=== PATIENT | female | born 1940 | race Caucasian/White ===

== ENCOUNTER 2018-06-15 14:49 | Inpatient (IN) | payer OTHER ==
--- NOTE | 2018-06-15 15:03 | EDPHY ---
H & P Time Seen by Provider: 06/15/18 15:02 HPI/ROS: Chief complaint. Abdominal pain, back pain, fever HPI. Patient is a 78-year-old female visiting from [place]. 9 days ago while in [place] she awoke with pain across her back. She went to the emergency department and had chest x-ray EKG nitroglycerin and then a muscle relaxer which seemed to relieve the pain. She had been previously the night before sitting awkwardly in a chair at a performance. She did stay overnight in the hospital and was seen by Cardiology. She was cleared from cardiac standpoint and has been using the muscle relaxers intermittently since. She was fine for the next 7 days. Yesterday she woke to come on the plane flight to [place]. She developed the on the way to the airport some abdominal pain and chills. She continued to have abdominal pain on the airplane. She was seen yesterday at urgent care and workup included a lipase which was normal. However today she has fever. She has pain in the mid abdomen going through to her back. She has no nausea vomiting or diarrhea. She notes dark urine today. She has had decreased oral intake. No upper respiratory symptoms or cough or chest pain or shortness of breath. No treatment for fever today. She has been using Tums. ROS 10 systems were reviewed and negative with the exception of the elements mentioned in the history of present illness Past Medical/Surgical History: Open cholecystectomy 8-10 years ago without subsequent problems. Hypertension, hypothyroid Social History: , nonsmoker, no alcohol Smoking Status: Never smoked Physical Exam: General Appearance: Alert well-developed female moderate distress vital signs significant for temperature 38.9 degrees. Blood pressure 183/56. Heart rate 99 Eyes: Pupils equal and round no pallor or injection. Scleral icterus ENT, pharynx without injection. Mucous membranes are dry Respiratory: There are no retractions, lungs are clear to auscultation. Cardiovascular: Regular rate and rhythm. Gastrointestinal: Abdomen is soft with tenderness in the periumbilical area as well as right lower quadrant. No masses. Normal bowel sounds Neurological: Awake and alert, sensory and motor exams grossly normal. Skin: Warm and dry, no rashes. Musculoskeletal: Neck is supple nontender. Extremities symmetrical, full range of motion. Psychiatric: Patient is oriented X 3, there is no agitation. Constitutional: Initial Vital Signs Temperature (C) 38.9 C H 06/15/18 14:58 Heart Rate 99 06/15/18 14:58 Respiratory Rate 18 06/15/18 14:58 Blood Pressure 183/56 H 06/15/18 14:58 O2 Sat (%) 95 06/15/18 14:58 O2 Delivery Mode Room Air Allergies/Adverse Reactions: No Known Allergies Allergy (Verified 06/15/18 19:14) Home Medications: Medication Instructions Recorded Alendronate Sodium [Fosamax 35 MG] 35 mg PO FR@0800 06/15/18 Calcium Carb W/Vit D [Calcium Carb 500 mg PO BID 06/15/18 W/Vit D 500/200 (*)] Cyclobenzaprine [Flexeril 10 MG 5 mg PO TID PRN 06/15/18 (*)] Herbals/Supplements -Info Only 1 ea PO DAILY 06/15/18 Levothyroxine [Synthroid 137 mcg 137 mcg PO DAILY 06/15/18 (*)] Lisinopril [Zestril 10 mg (*)] 10 mg PO DAILY 06/15/18 [place]-3 Fatty Acids [Fish Oil 1000 1,000 mg PO DAILY 06/15/18 mg (*)] Medical Decision Making - Diagnostics Imaging Results: Imaging Impressions Chest X-Ray 06/15/18 15:32 Impression: Diffuse interstitial prominence with apical pleural thickening, which could be related to emphysema or interstitial lung disease, among other etiologies, with no acute findings. Abdomen CT 06/15/18 17:17 Impression: 1. Marked dilatation of the intrahepatic and extrahepatic biliary ductal system to the level of the ampulla postcholecystectomy. The degree of biliary dilatation is greater than typically present postcholecystectomy and suggests the possibility of a mass at the ampulla, which is not directly visualized on this study. 2. Marked constipation. Results called to Dr. Joel Banks at 5:40 p.m. Chest x-ray interpreted by me as nonacute CT abdomen and pelvis with IV contrast reviewed by me and discussed with Dr. Wright shows intra and extrahepatic duct dilatation. No evidence for diverticulitis, ascites, pancreatitis. Appendix is not seen but no secondary findings. CT consistent with cholangitis Procedures: IV normal saline with initial target of 1 L. Tylenol for fever Sepsis workup IV Levaquin ED Course/Re-evaluation: Serial evaluations and patient is stable. Patient and I discussed laboratory and imaging evaluation. We discussed treatment plan including recommendation for admission. I consulted discussed case with Dr. Blair for Gastroenterology who will see the patient I consulted and discused the case with , hospitalist, who agrees to the admission Differential Diagnosis: This appears to be cholangitis. She has triad of fever, increased bilirubin, and abdominal pain. Intra and extrahepatic duct dilatation and abnormal LFTs. No obvious tumor as a cause. - Data Points Laboratory Results: Laboratory Results 06/15/18 15:05 06/15/18 15:05 06/15/18 06/15/18 06/15/18 16:10 15:30 15:05 WBC RBC Hgb Hct MCV MCH MCHC RDW Plt Count MPV Neut % (Auto) Lymph % (Auto) [place] % (Auto) Eos % (Auto) Baso % (Auto) Nucleat RBC Rel Count Absolute Neuts (auto) Absolute Lymphs (auto) Absolute Monos (auto) Absolute Eos (auto) Absolute Basos (auto) Absolute Nucleated RBC Immature Gran % Seg Neutrophils % Band Neutrophils % Lymphocytes % Monocytes % Eosinophils % Basophils % Metamyelocytes % Myelocytes % Promyelocytes % Blast Cells % Immature Gran # Absolute Seg Neuts Absolute Band Neuts Absolute Lymphocytes Absolute Monocytes Absolute Eosinophils Absolute Basophils Absolute Metamyelocyte Absolute Myelocytes Absolute Promyelocytes Absolute Plasma Cells Nucleated RBCs Absolute Blast Cells Plasma Cells % Platelet Estimate Oval Macrocytes PT 16.4 SEC H SEC (12.0-15.0) INR 1.30 H (0.83-1.16) APTT 27.2 SEC SEC (23.0-38.0) VBG Lactic Acid Sodium Potassium Chloride Carbon Dioxide Anion Gap BUN Creatinine Estimated GFR Glucose Calcium Total Bilirubin 8.8 mg/dL H mg/dL (0.1-1.4) Conjugated Bilirubin 5.9 mg/dL H mg/dL (0.0-0.5) Unconjugated Bilirubin 2.9 mg/dL H mg/dL (0.0-1.1) AST 401 IU/L H IU/L (14-46) ALT 462 IU/L H IU/L (9-52) Alkaline Phosphatase 258 IU/L H IU/L (38-126) Total Protein 7.1 g/dL g/dL (6.3-8.2) Albumin 4.3 g/dL g/dL (3.5-5.0) Lipase 69 IU/L IU/L (23-300) Urine Color BREEZY Urine Appearance CLEAR Urine pH 5.0 (5.0-7.5) Ur Specific [place] 1.013 (1.002-1.030) Urine Protein NEGATIVE (NEGATIVE) Urine Ketones TRACE H (NEGATIVE) Urine Blood 1+ H (NEGATIVE) Urine Nitrate NEGATIVE (NEGATIVE) Urine Bilirubin POSITIVE H (NEGATIVE) Urine Urobilinogen 4.0 EU H EU (0.2-1.0) Ur Leukocyte Esterase NEGATIVE (NEGATIVE) Urine RBC 5-10 /hpf H /hpf (0-3) Urine WBC 1-3 /hpf /hpf (0-3) Ur Epithelial Cells NONE SEEN /lpf /lpf (NONE-1+) Urine Mucus TRACE /lpf /lpf (NONE-1+) Urine Glucose NEGATIVE (NEGATIVE) 06/15/18 06/15/18 06/15/18 15:05 15:05 15:05 WBC 13.03 10^3/uL H 10^3/uL (3.80-9.50) RBC 3.74 10^6/uL L 10^6/uL (4.18-5.33) Hgb 12.4 g/dL L g/dL (12.6-16.3) Hct 35.4 % L % (38.0-47.0) MCV 94.7 fL fL (81.5-99.8) MCH 33.2 pg pg (27.9-34.1) MCHC 35.0 g/dL g/dL (32.4-36.7) RDW 13.5 % % (11.5-15.2) Plt Count 236 10^3/uL 10^3/uL (150-400) MPV 10.0 fL fL (8.7-11.7) Neut % (Auto) Not Reported Lymph % (Auto) Not Reported [place] % (Auto) Not Reported Eos % (Auto) Not Reported Baso % (Auto) Not Reported Nucleat RBC Rel Count Not Reported Absolute Neuts (auto) Not Reported Absolute Lymphs (auto) Not Reported Absolute Monos (auto) Not Reported Absolute Eos (auto) Not Reported Absolute Basos (auto) Not Reported Absolute Nucleated RBC Not Reported Immature Gran % Not Reported Seg Neutrophils % 90.0 % % Band Neutrophils % 0.0 % % Lymphocytes % 7.0 % % Monocytes % 3.0 % % Eosinophils % 0.0 % % Basophils % 0.0 % % Metamyelocytes % 0.0 % % Myelocytes % 0.0 % % Promyelocytes % 0.0 % % Blast Cells % 0.0 % % Immature Gran # Not Reported Absolute Seg Neuts 11.73 10^3/uL H 10^3/uL (1.70-6.50) Absolute Band Neuts 0.00 10^3/uL 10^3/uL (0.00-0.70) Absolute Lymphocytes 0.91 10^3/uL L 10^3/uL (1.00-3.00) Absolute Monocytes 0.39 10^3/uL 10^3/uL (0.30-0.80) Absolute Eosinophils 0.00 10^3/uL L 10^3/uL (0.03-0.40) Absolute Basophils 0.00 10^3/uL L 10^3/uL (0.02-0.10) Absolute Metamyelocyte 0.00 10^3/mL 10^3/mL (0.00-0.00) Absolute Myelocytes 0.00 10^3/mL 10^3/mL (0.00-0.00) Absolute Promyelocytes 0.00 10^3/uL 10^3/uL (0.00-0.00) Absolute Plasma Cells 0.00 10^3/uL 10^3/uL (0.00-0.00) Nucleated RBCs 0 /100 WBC /100 WBC (0-0) Absolute Blast Cells 0.00 10^3/uL 10^3/uL (0.00-0.00) Plasma Cells % 0.0 % % Platelet Estimate ADEQUATE (ADEQ) Oval Macrocytes 1+ H PT REJ INR REJ APTT REJ VBG Lactic Acid 1.3 mmol/L mmol/L (0.7-2.1) Sodium Potassium Chloride Carbon Dioxide Anion Gap BUN Creatinine Estimated GFR Glucose Calcium Total Bilirubin Conjugated Bilirubin Unconjugated Bilirubin AST ALT Alkaline Phosphatase Total Protein Albumin Lipase Urine Color Urine Appearance Urine pH Ur Specific [place] Urine Protein Urine Ketones Urine Blood Urine Nitrate Urine Bilirubin Urine Urobilinogen Ur Leukocyte Esterase Urine RBC Urine WBC Ur Epithelial Cells Urine Mucus Urine Glucose 06/15/18 15:05 WBC RBC Hgb Hct MCV MCH MCHC RDW Plt Count MPV Neut % (Auto) Lymph % (Auto) [place] % (Auto) Eos % (Auto) Baso % (Auto) Nucleat RBC Rel Count Absolute Neuts (auto) Absolute Lymphs (auto) Absolute Monos (auto) Absolute Eos (auto) Absolute Basos (auto) Absolute Nucleated RBC Immature Gran % Seg Neutrophils % Band Neutrophils % Lymphocytes % Monocytes % Eosinophils % Basophils % Metamyelocytes % Myelocytes % Promyelocytes % Blast Cells % Immature Gran # Absolute Seg Neuts Absolute Band Neuts Absolute Lymphocytes Absolute Monocytes Absolute Eosinophils Absolute Basophils Absolute Metamyelocyte Absolute Myelocytes Absolute Promyelocytes Absolute Plasma Cells Nucleated RBCs Absolute Blast Cells Plasma Cells % Platelet Estimate Oval Macrocytes PT INR APTT VBG Lactic Acid Sodium 135 mEq/L mEq/L (135-145) Potassium 4.0 mEq/L mEq/L (3.3-5.0) Chloride 101 mEq/L mEq/L (97-110) Carbon Dioxide 20 mEq/l L mEq/l (22-31) Anion Gap 14 mEq/L mEq/L (6-14) BUN 19 mg/dL mg/dL (7-23) Creatinine 0.8 mg/dL mg/dL (0.6-1.0) Estimated GFR > 60 Glucose 116 mg/dL H mg/dL (70-100) Calcium 9.4 mg/dL mg/dL (8.5-10.4) Total Bilirubin 9.1 mg/dL H mg/dL (0.1-1.4) Conjugated Bilirubin 6.4 mg/dL H mg/dL (0.0-0.5) Unconjugated Bilirubin 2.7 mg/dL H mg/dL (0.0-1.1) AST ALT Alkaline Phosphatase Total Protein Albumin Lipase Urine Color Urine Appearance Urine pH Ur Specific [place] Urine Protein Urine Ketones Urine Blood Urine Nitrate Urine Bilirubin Urine Urobilinogen Ur Leukocyte Esterase Urine RBC Urine WBC Ur Epithelial Cells Urine Mucus Urine Glucose Medications Given: Discontinued Medications Acetaminophen (Tylenol) 650 mg PO EDNOW ONE Stop: 06/15/18 15:33 Last Admin: 06/15/18 15:45 Dose: 650 mg Sodium Chloride (Ns) 1,000 mls @ 0 mls/hr IV EDNOW ONE; Wide Open PRN Reason: Protocol Stop: 06/15/18 15:11 Last Admin: 06/15/18 15:15 Dose: 1,000 mls Sodium Chloride (Ns) 1,000 mls @ 0 mls/hr IV EDNOW ONE; Wide Open PRN Reason: Protocol Stop: 06/15/18 16:02 Last Admin: 06/15/18 16:06 Dose: 1,000 mls Ertapenem 1 gm/ Sodium (Chloride) 100 mls @ 200 mls/hr IV EDNOW ONE PRN Reason: Protocol Stop: 06/15/18 18:22 Last Admin: 06/15/18 18:38 Dose: 100 mls Departure - Departure Disposition: [facility] Acute Clinical Impression: Cholangitis Condition: Fair
[2018-06-15] MEDS ORDERED: NS 1,000 ML IV ONE ×2 (15:10→16:01)
[2018-06-15 15:22] LABS: PLATELET COUNT 236 10^3/uL (150-400)
[2018-06-15] MEDS ORDERED: ACETAMINOPHEN 325 MG TAB PO ONE (15:32)
[2018-06-15 15:50] LABS: INR 1.3 (0.83-1.16); PROTIME(PATIENT) 16.4 SEC (12.0-15.0)
[2018-06-15] MEDS ORDERED: IOPAMIDOL (ISOVUE-300) 150 ML BTL ONE (17:21)
[2018-06-15] MEDS ORDERED: ERTAPENEM 1 GM in NS 100 ML IV ONE (17:53)
--- NOTE | 2018-06-15 20:02 | SOAPPROG ---
SOAP Progress Note Assessment/Plan: Assessment:Plan: see full dictated consult 78 y/o female with possible cholangitis, query ampullary lesion ERCp - will see if OR available michele Blair MD [phone] 06/15/18 20:00 Subjective: n Objective: Vital Signs Temp Pulse Resp BP Pulse Ox 37.3 C 83 16 139/62 H 95 06/15/18 18:51 06/15/18 18:51 06/15/18 18:51 06/15/18 18:51 06/15/18 18:51 06/14/18 06/15/18 06/16/18 05:59 05:59 05:59 Intake Total 1999 Balance 1999 PT 16.4 SEC (12.0-15.0) H 06/15/18 15:30 INR 1.30 (0.83-1.16) H 06/15/18 15:30 ICD10 Worksheet Patient Problems: Problems Problem Status Onset Cholangitis Acute
[2018-06-15] MEDS ORDERED: HYDROmorphONE/DILAUDID 1 MG/ML INJ IVP PRN (20:34)
[2018-06-15] MEDS ORDERED: ONDANSETRON 4 MG/2 ML VIAL IVP PRN ×2 (20:34→20:50)
[2018-06-15] MEDS ORDERED: oxyCODONE IR 5 MG TAB PO PRN (20:34)
[2018-06-15] MEDS ORDERED: PROMETHAZINE HCL 25 MG/ML INJ IVP PRN (20:34)
[2018-06-15] MEDS ORDERED: ONDANSETRON DISINTEGRATING 4 MG TAB PO PRN (20:34)
[2018-06-15] MEDS ORDERED: ACETAMINOPHEN 325 MG TAB PO PRN (20:34)
[2018-06-15] MEDS ORDERED: CYCLOBENZAPRINE 10 MG TAB PO PRN (20:36)
--- NOTE | 2018-06-15 20:41 | PDANEPAE ---
ANE History of Present Illness Cholangitis ANE Past Medical History - Cardiovascular History Hx Hypertension: Yes - Pulmonary History Hx Oxygen in Use at Home: No - Endocrine History Hx Diabetes: No ANE Review of Systems Review of Systems: ANE Patient History - Allergies Allergies/Adverse Reactions: No Known Allergies Allergy (Verified 06/15/18 19:14) - Home Medications Home medications: home medication list seen and reviewed Home Medications: Alendronate Sodium [Fosamax 35 MG] 35 mg PO FR@0800 06/15/18 [Last Taken ] Calcium Carb W/Vit D [Calcium Carb W/Vit D 500/200 (*)] 500 mg PO BID 06/15/18 [ Last Taken 06/15/18] Cyclobenzaprine [Flexeril 10 MG (*)] 5 mg PO TID PRN 06/15/18 [Last Taken 10:00] Herbals/Supplements -Info Only 1 ea PO DAILY 06/15/18 [Last Taken Unknown] Levothyroxine [Synthroid 137 mcg (*)] 137 mcg PO DAILY 06/15/18 [Last Taken ] Lisinopril [Zestril 10 mg (*)] 10 mg PO DAILY 06/15/18 [Last Taken 06/15/18] [place]-3 Fatty Acids [Fish Oil 1000 mg (*)] 1,000 mg PO DAILY 06/15/18 [Last Taken 06/15/18] - NPO status NPO Status: no food or drink >8 hours NPO Since - Liquids (Date): 06/15/18 NPO Since - Liquids (Time): 14:00 NPO Since - Solids (Date): 06/15/18 NPO Since - Solids (Time): 08:00 - Anes Hx Anes Hx: no prior problems - Smoking Hx Smoking Status: Never smoked ANE Labs/Vital Signs - Labs Result Diagrams: 06/15/18 15:05 06/15/18 15:05 - Vital Signs Blood Pressure: 139/62 Heart Rate: 83 Respiratory Rate: 16 O2 Sat (%): 95 Height: 167.64 cm Weight: 52.163 kg ANE Physical Exam - Airway Neck exam: FROM Mallampati Score: Class 2 Mouth exam: normal dental/mouth exam - Pulmonary Pulmonary: no respiratory distress - Cardiovascular Cardiovascular: regular rate and rhythym - ASA Status ASA Status: III, E ANE Anesthesia Plan Anesthesia Plan: general endotracheal anesthesia
[2018-06-15] MEDS ORDERED: ROCURONIUM 50 MG/5 ML VIAL ONE (20:43)
[2018-06-15] MEDS ORDERED: LIDOCAINE 2% 5 ML SDV ONE (20:43)
[2018-06-15] MEDS ORDERED: PROPOFOL 200 MG/20 ML VIAL ONE (20:44)
[2018-06-15] MEDS ORDERED: fentaNYL 100 MCG/2 ML INJ ONE (20:44)
--- NOTE | 2018-06-15 20:44 | GCON ---
DATE OF CONSULTATION: 06/15/2018 REFERRING PHYSICIAN: Joel Banks MD INDICATION FOR CONSULTATION: Abnormal imaging, elevated liver enzymes and fever. HISTORY OF PRESENT ILLNESS: The patient is a pleasant 78-year-old female with past medical history significant for hypertension, hypothyroidism, osteopenia, who was in her usual state of health until a week ago Wednesday at 4:30 a.m. when she woke up acutely with significant back pain. She presented to the emergency room where they gave her some nitroglycerin and muscle relaxers and it eventually resolved. She states that they did not tell her there were any abnormal liver enzymes or other abnormalities. She did well for a number of days and then noticed that she was having darker urine approximately 1 week ago. She continued to have no symptoms until she was flying out here on an airplane and started to have some chills and discomfort. This was accompanied by more abdominal pain and back pain. She was seen at urgent care yesterday where they obtained a lipase, but no other laboratory data. Lipase was normal. She developed a fever today and ongoing pain, so came in for evaluation. She was noted to have significantly elevated bilirubin, AST, ALT, and alkaline phosphatase, and a CT scan that showed a dilated duct down to the level of the ampulla with no obvious stone. She is feeling much better currently after having a dose of Invanz, although her back pain still persists. She did not complain of any nausea or vomiting throughout this. She does have a history of a cholecystectomy many years ago. She does not remember any pain prior to having her gallbladder removed. Her appetite has been good. She has had no weight loss, and she is now admitted with the above, and I am called to help evaluate and treat in that regard. PAST MEDICAL HISTORY: Hypertension, hypothyroidism, osteopenia. PAST SURGICAL HISTORY: Gallbladder removed 8 years ago. MEDICATIONS: At home include Synthroid, lisinopril, aspirin, calcium and vitamin D, fish oil, alginate and vitamin B12. ALLERGIES: No known drug allergies. SOCIAL HISTORY: She does not smoke. She drinks alcohol a glass of wine with dinner on occasion. FAMILY HISTORY: Mother with breast cancer. Sister with breast cancer. Father with some type of cancer unknown. No history of colon cancer, possible colon polyps, but she is not sure. REVIEW OF SYSTEMS: A complete review of systems was performed and negative other than in the HPI. PHYSICAL EXAMINATION: GENERAL APPEARANCE: Well-developed, well-nourished female sitting in her bed, in no acute distress. VITAL SIGNS: 139/62, pulse is 83, 95% on room air, temperature 37.3, T-max was 38.9. EYES: Icteric. EOMI. EMILIA. Mouth: No lesions. Moist membranes. NECK: Supple. Full range of motion. No JVD. BACK: No spine tenderness. No CVA tenderness. CHEST: Lungs are clear. CARDIAC: S1, S2. Regular rate and rhythm. No murmurs, rubs , gallops appreciated. ABDOMEN: Bowel sounds are normal in pitch and frequency. ABDOMEN: Soft with right upper quadrant tenderness. No rebound or guarding. No hepatosplenomegaly. EXTREMITIES: No cyanosis, clubbing, or edema. NEUROLOGIC: Cranial nerves intact. Nonfocal. SKIN: Jaundiced. No stigmata of advanced liver disease. LABORATORY DATA: Sodium 135, potassium 4.0, chloride 101, bicarb 20, BUN 19, creatinine 0.8, glucose 116, total bilirubin 8.8, conjugated 5.9, unconjugated 2.9, AST 401, ALT 462, alkaline phosphatase 258, total protein 7.1, albumin 4.3 , lipase 69. WBC 13.03, hemoglobin 12.4, hematocrit 35.4, platelet count 236, pro time 16.4 with INR 1.30. Chest x-ray performed today at 1532 revealed diffuse interstitial prominence with apical thickening which could be related to emphysema or interstitial lung disease, among other etiologies. No other acute findings. IMAGING: Abdominal CT scan performed at 1717 today with IV contrast: Marked dilation of intrahepatic and extrabiliary ductal system to the level of the ampulla where rapid tapering occurs. The gallbladder is surgically absent. There are no stones noted. 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 The pancreas is atrophic, and there are no masses. I did review this with the radiologist this evening. ASSESSMENT: 1. Elevated liver enzymes. 2. Abnormal imaging with dilated ducts tapering at the ampulla. 3. Hypertension. 4. Hypothyroidism. 5. Osteopenia. 6. Mild anemia which is normocytic. RECOMMENDATIONS: 1. Continue IV antibiotics. 2. ERCP for evaluation of presumed cholangitis and possible ampullary tumor. 3. Treatment of her other medical issues as per hospitalist. Thank you for allowing me to participate in the patient's health care. Do not hesitate to call me with any questions. /[id number]/MODL MTDD
[2018-06-15] MEDS ORDERED: LR 1,000 ML IV ONE (20:46)
[2018-06-15] MEDS ORDERED: NALOXONE HCL 0.4 MG/ML INJ IVP PRN (20:50)
[2018-06-15] MEDS ORDERED: fentaNYL 100 MCG/2 ML INJ IVP PRN (20:50)
[2018-06-15] MEDS ORDERED: GLUCAGON HCL 1 MG VIAL ONE (20:51)
[2018-06-15] MEDS ORDERED: IOTHALAMATE MEG (CONRAY) 50 ML VIAL IV ONE (20:51)
[2018-06-15] MEDS ORDERED: DEXAMETHASONE 4 MG/ML VIAL ONE (21:23)
[2018-06-15] MEDS ORDERED: ONDANSETRON 4 MG/2 ML VIAL ONE (21:23)
--- NOTE | 2018-06-15 22:25 | PDGENHP ---
History and Physical - Chief Complaint abd pain - History of Present Illness 78 yo F with PMH that includes HTN, hypothyroid presenting with complaints of one week of abdominal pain and fever and noted that her skin was a bit yellow. She notes that the pain was initiallly in her back but then settled more in mid epigastric area. She also noted yellowing of her urine. She has had fever and chills. She has never had similar sxs in the past. She did have her gallbladder removed 10 years ago. She is currently visiting her daughter from [place] but does spend a fair amount of time in [place] every year. History Information - Allergies/Home Medication List Allergies/Adverse Reactions: No Known Allergies Allergy (Verified 06/15/18 19:14) Home Medications: Alendronate Sodium [Fosamax 35 MG] 35 mg PO FR@0800 06/15/18 [Last Taken ] Calcium Carb W/Vit D [Calcium Carb W/Vit D 500/200 (*)] 500 mg PO BID 06/15/18 [ Last Taken 06/15/18] Cyclobenzaprine [Flexeril 10 MG (*)] 5 mg PO TID PRN 06/15/18 [Last Taken 10:00] Herbals/Supplements -Info Only 1 ea PO DAILY 06/15/18 [Last Taken Unknown] Levothyroxine [Synthroid 137 mcg (*)] 137 mcg PO DAILY 06/15/18 [Last Taken ] Lisinopril [Zestril 10 mg (*)] 10 mg PO DAILY 06/15/18 [Last Taken 06/15/18] Santaquin-3 Fatty Acids [Fish Oil 1000 mg (*)] 1,000 mg PO DAILY 06/15/18 [Last Taken 06/15/18] I have personally reviewed and updated: family history, medical history, social history, surgical history - Past Medical History hypertension Additional medical history: hypothyroid. osteopenia - Surgical History Reports: cholecystectomy - Family History Positive for: cancer (mother and sister with breast cancer) - Social History Smoking Status: Never smoked Alcohol Use: Rarely Drug Use: None Additional social history: , lives in [place], daughter lives in [place] Review of Systems Review of Systems: ROS: 10pt was reviewed & negative except for what was stated in HPI & below Physical Exam Physical Exam: Temp Pulse Resp BP Pulse Ox 37.7 C 83 16 139/62 H 95 06/15/18 20:35 06/15/18 20:41 06/15/18 20:41 06/15/18 20:41 06/15/18 20:41 Constitutional: no apparent distress, appears nourished Eyes: PERRL, icteric sclera Ears, Nose, Mouth, Throat: moist mucous membranes, hearing normal Cardiovascular: regular rate and rhythym, no murmur, rub, or gallop Respiratory: no respiratory distress, no rales or rhonchi Gastrointestinal: normoactive bowel sounds, soft, non-tender abdomen Genitourinary: no bladder tenderness Skin: warm, No normal color Musculoskeletal: full muscle strength, no muscle tenderness Neurologic: AAOx3 Psychiatric: interacting appropriately, not anxious, not encephalopathic Lab Data & Imaging Review 06/15/18 15:05 06/15/18 15:05 WBC 13.03 10^3/uL (3.80-9.50) H 06/15/18 15:05 RBC 3.74 10^6/uL (4.18-5.33) L 06/15/18 15:05 Hgb 12.4 g/dL (12.6-16.3) L 06/15/18 15:05 Hct 35.4 % (38.0-47.0) L 06/15/18 15:05 MCV 94.7 fL (81.5-99.8) 06/15/18 15:05 MCH 33.2 pg (27.9-34.1) 06/15/18 15:05 MCHC 35.0 g/dL (32.4-36.7) 06/15/18 15:05 RDW 13.5 % (11.5-15.2) 06/15/18 15:05 Plt Count 236 10^3/uL (150-400) 06/15/18 15:05 MPV 10.0 fL (8.7-11.7) 06/15/18 15:05 Neut % (Auto) Not Reported 06/15/18 15:05 Lymph % (Auto) Not Reported 06/15/18 15:05 [place] % (Auto) Not Reported 06/15/18 15:05 Eos % (Auto) Not Reported 06/15/18 15:05 Baso % (Auto) Not Reported 06/15/18 15:05 Nucleat RBC Rel Count Not Reported 06/15/18 15:05 Absolute Neuts (auto) Not Reported 06/15/18 15:05 Absolute Lymphs (auto) Not Reported 06/15/18 15:05 Absolute Monos (auto) Not Reported 06/15/18 15:05 Absolute Eos (auto) Not Reported 06/15/18 15:05 Absolute Basos (auto) Not Reported 06/15/18 15:05 Absolute Nucleated RBC Not Reported 06/15/18 15:05 Immature Gran % Not Reported 06/15/18 15:05 Seg Neutrophils % 90.0 % 06/15/18 15:05 Band Neutrophils % 0.0 % 06/15/18 15:05 Lymphocytes % 7.0 % 06/15/18 15:05 Monocytes % 3.0 % 06/15/18 15:05 Eosinophils % 0.0 % 06/15/18 15:05 Basophils % 0.0 % 06/15/18 15:05 Metamyelocytes % 0.0 % 06/15/18 15:05 Myelocytes % 0.0 % 06/15/18 15:05 Promyelocytes % 0.0 % 06/15/18 15:05 Blast Cells % 0.0 % 06/15/18 15:05 Immature Gran # Not Reported 06/15/18 15:05 Absolute Seg Neuts 11.73 10^3/uL (1.70-6.50) H 06/15/18 15:05 Absolute Band Neuts 0.00 10^3/uL (0.00-0.70) 06/15/18 15:05 Absolute Lymphocytes 0.91 10^3/uL (1.00-3.00) L 06/15/18 15:05 Absolute Monocytes 0.39 10^3/uL (0.30-0.80) 06/15/18 15:05 Absolute Eosinophils 0.00 10^3/uL (0.03-0.40) L 06/15/18 15:05 Absolute Basophils 0.00 10^3/uL (0.02-0.10) L 06/15/18 15:05 Absolute Metamyelocyte 0.00 10^3/mL (0.00-0.00) 06/15/18 15:05 Absolute Myelocytes 0.00 10^3/mL (0.00-0.00) 06/15/18 15:05 Absolute Promyelocytes 0.00 10^3/uL (0.00-0.00) 06/15/18 15:05 Absolute Plasma Cells 0.00 10^3/uL (0.00-0.00) 06/15/18 15:05 Nucleated RBCs 0 /100 WBC (0-0) 06/15/18 15:05 Absolute Blast Cells 0.00 10^3/uL (0.00-0.00) 06/15/18 15:05 Plasma Cells % 0.0 % 06/15/18 15:05 Platelet Estimate ADEQUATE (ADEQ) 06/15/18 15:05 Oval Macrocytes 1+ H 06/15/18 15:05 PT 16.4 SEC (12.0-15.0) H 06/15/18 15:30 INR 1.30 (0.83-1.16) H 06/15/18 15:30 APTT 27.2 SEC (23.0-38.0) 06/15/18 15:30 VBG Lactic Acid 1.3 mmol/L (0.7-2.1) 06/15/18 15:05 Sodium 135 mEq/L (135-145) 06/15/18 15:05 Potassium 4.0 mEq/L (3.3-5.0) 06/15/18 15:05 Chloride 101 mEq/L (97-110) 06/15/18 15:05 Carbon Dioxide 20 mEq/l (22-31) L 06/15/18 15:05 Anion Gap 14 mEq/L (6-14) 06/15/18 15:05 BUN 19 mg/dL (7-23) 06/15/18 15:05 Creatinine 0.8 mg/dL (0.6-1.0) 06/15/18 15:05 Estimated GFR > 60 06/15/18 15:05 Glucose 116 mg/dL (70-100) H 06/15/18 15:05 Calcium 9.4 mg/dL (8.5-10.4) 06/15/18 15:05 Total Bilirubin 8.8 mg/dL (0.1-1.4) H 06/15/18 15:05 Conjugated Bilirubin 5.9 mg/dL (0.0-0.5) H 06/15/18 15:05 Unconjugated Bilirubin 2.9 mg/dL (0.0-1.1) H 06/15/18 15:05 AST 401 IU/L (14-46) H 06/15/18 15:05 ALT 462 IU/L (9-52) H 06/15/18 15:05 Alkaline Phosphatase 258 IU/L (38-126) H 06/15/18 15:05 Total Protein 7.1 g/dL (6.3-8.2) 06/15/18 15:05 Albumin 4.3 g/dL (3.5-5.0) 06/15/18 15:05 Lipase 69 IU/L (23-300) 06/15/18 15:05 Urine Color BREEZY 06/15/18 16:10 Urine Appearance CLEAR 06/15/18 16:10 Urine pH 5.0 (5.0-7.5) 06/15/18 16:10 Ur Specific [place] 1.013 (1.002-1.030) 06/15/18 16:10 Urine Protein NEGATIVE (NEGATIVE) 06/15/18 16:10 Urine Ketones TRACE (NEGATIVE) H 06/15/18 16:10 Urine Blood 1+ (NEGATIVE) H 06/15/18 16:10 Urine Nitrate NEGATIVE (NEGATIVE) 06/15/18 16:10 Urine Bilirubin POSITIVE (NEGATIVE) H 06/15/18 16:10 Urine Urobilinogen 4.0 EU (0.2-1.0) H 06/15/18 16:10 Ur Leukocyte Esterase NEGATIVE (NEGATIVE) 06/15/18 16:10 Urine RBC 5-10 /hpf (0-3) H 06/15/18 16:10 Urine WBC 1-3 /hpf (0-3) 06/15/18 16:10 Ur Epithelial Cells NONE SEEN /lpf (NONE-1+) 06/15/18 16:10 Urine Mucus TRACE /lpf (NONE-1+) 06/15/18 16:10 Urine Glucose NEGATIVE (NEGATIVE) 06/15/18 16:10 Visualized and Interpreted Chest x-ray results: Yes Chest X-Ray results: no infiltrate Visualized and Interpreted imaging results: Yes Interpretation: abd CT: marked intra and extra hepatic dilation Assessment & Plan Assessment: Cholangitis (Acute) 78 yo F with hx of HTN and hypothyroid presenting with cholangitis # cholangitis: with significantly elevated LFTs, abdominal pain and fever and CT findings of significant intra and extra hepatic ductal dilation and possible ampullary mass. Appreciate GI input, taken for ERCP this evening, will continue ertapenem for now # sepsis: meeting criteria with leukocytosis and fever in setting of above, HD stable # htn: continue lisinopril # hypothyroid: continue synthroid # IP status, will require > 48 hours stay for eval/mgmt of above Patient new to my care. Old records reviewed and summarized as above. Care plan reviewed with ER doctor and GI as above.
[2018-06-15] MEDS ORDERED: INDOMETHACIN 50 MG SUPP PR ONE ×2 (22:26→23:30)
[2018-06-15] MEDS ORDERED: SUGAMMADEX SODIUM 200 MG/2 ML VIAL IVP ONE (22:44)
--- NOTE | 2018-06-15 22:57 | SOAPPROG ---
SOAP Progress Note Assessment/Plan: Assessment:Plan: see full dictated consult 78 y/o female with possible cholangitis, query ampullary lesion ERCp - will see if OR available michele Blair MD [phone] 06/15/18 20:00 06/15/18 22:56 ERCP was unsuccessful i did not see any ampullary lesion or mass unclear etiology of distal CBD stricture will ask IR to consult for possible PTC if she is stable can be in the morning Objective: Vital Signs Temp Pulse Resp BP Pulse Ox 37.7 C 83 16 139/62 H 95 06/15/18 20:35 06/15/18 20:41 06/15/18 20:41 06/15/18 20:41 06/15/18 20:41 06/14/18 06/15/18 06/16/18 05:59 05:59 05:59 Intake Total 1999 Balance 1999 PT 16.4 SEC (12.0-15.0) H 06/15/18 15:30 INR 1.30 (0.83-1.16) H 06/15/18 15:30 ICD10 Worksheet Patient Problems: Problems Problem Status Onset Cholangitis Acute
--- NOTE | 2018-06-15 23:03 | POSTANESTH ---
Post Anesthetic Evaluation Cardiovascular Status: Similar to Pre-Op Cond Respiratory Status: Similar to Pre-op Cond. Level of Consciousness/Mental Status: Alert and Oriented Pain Control: Adequate, Prn Tx Ordered Nausea/Vomiting Control: Adequate, Prn Tx Ordered Complications Possibly Related to Anesthesia: None Noted
[2018-06-15] MEDS: NS 1,000 ML IV SCH (23:49)
--- NOTE | 2018-06-16 00:04 | GPN ---
DATE OF PROCEDURE: 06/15/2018 PROCEDURE PERFORMED: Esophagogastroduodenoscopy and endoscopic retrograde cholangiopancreatography. INDICATIONS: Abnormal imaging, elevated liver enzymes, fever, possible cholangitis. INFORMED CONSENT: I had a discussion with the patient regarding the procedure, it attendant benefits and risks including bleeding, perforation, infection, reaction to medications and pancreatitis. Informed consent was signed and witnessed. COMPLICATIONS: Inability to complete the procedure. The patient tolerated it well. DESCRIPTION OF PROCEDURE: Initially used side-viewing upper endoscope through the oropharynx and advanced down into the duodenum. I was having some difficulty accessing the ampulla as the scope would not advance beyond the 1st and 2nd portion of the duodenum. After multiple attempts, this was withdrawn and a forward-viewing upper endoscope was obtained to do an EGD to make sure there was no ampullary mass or stricture causing the abnormality. The forward- viewing upper endoscope was introduced through the pharynx and advanced down on direct visualization down to a normal esophagus. The stomach was normal. The pylorus was normal. The duodenal bulb and sweep appeared normal. I did not see any narrowing. There was some trauma from my scope passage. The ampulla did look normal without any mass on the ampulla. The forward-viewing upper endoscope was then removed and the side-viewing upper scope was reinserted. I was able to advance down to the duodenum and access the ampulla with torquing of the scope. As before, the ampulla did appear normal. I was able to cannulate the ampulla and the initial guidewire was into the bile duct. It was difficult to advance the sphincterotome over the wire. Initial injection did seem to opacify the distal common bile duct. A sphincterotomy was performed, and a stent was attempted to be placed. It was 7-E[place] 5 cm. Unfortunately, this was not being able to be advanced into the bile duct. After multiple attempts, this was removed and I atempted nballoon dilation of distal bile duct. During this the guidewire came out of the bile duct. I then attempted to recannulate the bile duct, and multiple attempts were unsuccessful. I did cannulate the pancreatic duct once or twice and did cannulate what appeared to be the cystic duct multiple times. I was unable to cannulate the bile duct to gain access to place a stent. After multiple attempts, the procedure was terminated unsuccessfully. There was no significant bile drainage. The patient tolerated the procedure well and was transferred to the recovery room in satisfactory condition. IMPRESSION: Unsuccessful endoscopic retrograde cholangiopancreatography. RECOMMENDATIONS: Transfer patient back to floor. Continue IV antibiotics. If the patient does well throughout the evening will have Interventional Radiology attempt a PTC tomorrow, then we could eventually perform a rendezvous procedure after the patient has been successfully decompressed. Thank you very much for allowing me to participate in the patient's health care. Do not hesitate to call me if you have any questions. Sincerely, /[id number]/MODL MTDD
[2018-06-16 04:48] LABS: PLATELET COUNT 185 10^3/uL (150-400)
[2018-06-16] MEDS: NS 1,000 ML IV SCH ×2 (06:37→20:13)
--- NOTE | 2018-06-16 08:54 | ASMTCMCOM ---
CM Note CM Note Notes: Chart reviewed for discharge planning purposes. The patient was admitted via ED with jaundice and abdominal pain. ERCP attempted but not successful. Here visiting daughter from [place]. [facility] to follow for needs. Plan: TBD Date Signed: 06/16/2018 08:53 AM Electronically Signed By:Perlita Macedo RN
[2018-06-16] MEDS: ERTAPENEM 1 GM in NS 100 ML IV SCH (09:09)
[2018-06-16] MEDS: LEVOTHYROXINE 137 MCG TAB PO SCH (09:09)
[2018-06-16] MEDS: OMEGA-3 FATTY ACIDS 1,000 MG CAP PO SCH (09:10)
[2018-06-16] MEDS: LISINOPRIL 10 MG TAB PO SCH (09:10)
[2018-06-16] MEDS ORDERED: BISACODYL 10 MG SUPP PR PRN (09:55)
[2018-06-16] MEDS ORDERED: MAGNESIUM HYDROXIDE 30 ML UDCUP PO PRN (09:55)
[2018-06-16] MEDS ORDERED: POLYETHYLENE GLYCOL 3350 17 GM PKT PO PRN (09:55)
[2018-06-16] MEDS ORDERED: LACTULOSE 20 GM/30 ML UDCUP PO PRN (09:55)
--- NOTE | 2018-06-16 10:14 | HOSPPROG ---
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 -failed attempt ERCP -to IR today for percutaneous intervention * Acute cholangitis with sepsis (fever/leukocytosis/tachycardia) -IV invanz -clinically non-toxic appearing today * HTN -continue lisinopril Subjective: No pain, feels okay Objective: Vital Signs Temp Pulse Resp BP Pulse Ox 36.7 C 73 18 123/57 H 95 06/16/18 08:00 06/16/18 08:00 06/16/18 08:00 06/16/18 09:10 06/16/18 08:00 Laboratory Results 06/16/18 04:07 06/16/18 04:07 06/15/18 06/16/18 06/17/18 05:59 05:59 05:59 Intake Total 3250 607 Output Total 200 Balance 3050 607 PT 16.4 SEC (12.0-15.0) H 06/15/18 15:30 INR 1.30 (0.83-1.16) H 06/15/18 15:30 CXR viewed, my personal interpretation is - hyperinflated, interstitial prominence abd CT - bile duct dilation, possible mass - Physical Exam Constitutional: no apparent distress, appears nourished, not in pain Cardiovascular: regular rate and rhythym, no murmur, rub, or gallop Respiratory: no respiratory distress, no rales or rhonchi, clear to auscultation Gastrointestinal: normoactive bowel sounds, soft, non-tender abdomen, no palpable masses Skin: no rashes or abrasions, no fluctuance, no induration Neurologic: AAOx3, sensation intact bilaterally Psychiatric: interacting appropriately, not anxious, not encephalopathic, thought process linear ICD10 Worksheet Patient Problems: Problems Problem Status Onset Cholangitis Acute
--- NOTE | 2018-06-16 11:35 | SOAPPROG ---
SOHERNANDEZ Progress Note Assessment/Plan: Assessment:Plan: see full dictated consult 78 y/o female with possible cholangitis, query ampullary lesion ERCp - will see if OR available michele Blair MD [phone] 06/15/18 20:00 06/15/18 22:56 ERCP was unsuccessful i did not see any ampullary lesion or mass unclear etiology of distal CBD stricture will ask IR to consult for possible PTC if she is stable can be in the morning 06/16/18 11:32 pt feeling well today, no pain no f/c/s her LFT"s did decrease a bit but I still think she needs better drainage as above. bili 8.8 to 6.3 I spoke to IR today and they will see her and if bile ducts are dilated still they will assess for PTC 1) Cholangitis - continue IV abx and see if needs PTC . If needs PTC then will need a rendezvous procedure next week to internalize drain and better evaluate her distal CBD 2) LFT's - down a bit but I still expect her duct is not fully decompressed 06/16/18 11:37 Subjective: CC - cholangitis, elevated LFT's abnl imaging pt feeling well has less TUQ pain but still present on palpation no f/c/s Objective: Vital Signs Temp Pulse Resp BP Pulse Ox 36.7 C 73 18 123/57 H 95 06/16/18 08:00 06/16/18 08:00 06/16/18 08:00 06/16/18 09:10 06/16/18 08:00 Laboratory Results 06/16/18 04:07 06/16/18 04:07 06/15/18 06/16/18 06/17/18 05:59 05:59 05:59 Intake Total 3250 607 Output Total 200 Balance 3050 607 PT 16.4 SEC (12.0-15.0) H 06/15/18 15:30 INR 1.30 (0.83-1.16) H 06/15/18 15:30 A+Ox3 CTA S1S2 +BS, soft ,mild RUQ tenderness no r/g Laboratory Tests 06/15/18 06/15/18 06/15/18 15:05 15:05 15:05 WBC 13.03 H Total Bilirubin 9.1 H 8.8 H AST 401 H ALT 462 H Alkaline Phosphatase 258 H 06/16/18 06/16/18 04:07 04:07 WBC 8.75 Total Bilirubin 6.3 H AST 175 H ALT 273 H Alkaline Phosphatase 160 H ICD10 Worksheet Patient Problems: Problems Problem Status Onset Cholangitis Acute
[2018-06-16] MEDS ORDERED: IOPAMIDOL (ISOVUE-300) 100 ML BTL ONE (13:09)
[2018-06-16] MEDS ORDERED: LIDOCAINE 1% 300 MG/30 ML SDV ONE (13:09)
[2018-06-16] MEDS ORDERED: FLUMAZENIL 0.5 MG/5 ML MDV IVP PRN (14:19)
[2018-06-16] MEDS ORDERED: MIDAZOLAM 2 MG/2 ML VIAL IVP PRN (14:19)
[2018-06-16] MEDS ORDERED: fentaNYL 100 MCG/2 ML INJ IVP PRN (14:19)
[2018-06-16] MEDS ORDERED: PROTAMINE SULFATE 50 MG/5 ML VIAL IVP PRN (14:19)
[2018-06-16] MEDS ORDERED: NALOXONE HCL 0.4 MG/ML INJ IVP PRN (14:19)
[2018-06-16] MEDS ORDERED: ceFAZolin 2 GM/DEXTROSE 100 ML IV ONE (14:19)
[2018-06-16] MEDS ORDERED: HEPARIN 10,000 UNIT/10 ML MDV (1,000 UNIT/ML) IVP PRN (14:19)
[2018-06-16] MEDS ORDERED: ALTEPLASE 2 MG VIAL IVP PRN (14:19)
[2018-06-16] MEDS ORDERED: MEPERIDINE 25 MG/ML SYR IVP PRN (14:19)
[2018-06-16] MEDS ORDERED: GLUCAGON HCL 1 MG VIAL IVP PRN (14:19)
[2018-06-16] MEDS ORDERED: NS 1,000 ML IV SCH (14:30)
--- NOTE | 2018-06-16 14:38 | PDPROPOC ---
Sedation Plan of Care ASA Classification: ASA 2 Mallampati Score: Class 2 Mallampati Reference Image:
[2018-06-16] MEDS: SENNOSIDES/DOCUSATE SODIUM TAB PO SCH (20:13)
[2018-06-17 04:25] LABS: PLATELET COUNT 210 10^3/uL (150-400)
[2018-06-17 04:31] LABS: INR 1.02 (0.83-1.16); PROTIME(PATIENT) 13.6 SEC (12.0-15.0)
[2018-06-17] MEDS: SENNOSIDES/DOCUSATE SODIUM TAB PO SCH ×2 (07:38→19:53)
[2018-06-17] MEDS: LISINOPRIL 10 MG TAB PO SCH (07:38)
[2018-06-17] MEDS: OMEGA-3 FATTY ACIDS 1,000 MG CAP PO SCH (07:38)
[2018-06-17] MEDS: LEVOTHYROXINE 137 MCG TAB PO SCH (07:40)
[2018-06-17] MEDS: ERTAPENEM 1 GM in NS 100 ML IV SCH (08:31)
--- NOTE | 2018-06-17 10:33 | PDMN ---
Medical Necessity Medical necessity: [facility] M555 Gallbladder or Bile Duct Inflammation or Stone: 78 yo w/ cholangitis with abd pain, sig elevated LFTS, fever w/ temp 38.9, WBC 13; bili 8.8, AST/ALT/AlkPhos: 401, 462, 258. CT findings of significant intra and extra hepatic ductal dilation and possible ampullary mass. ERCP completed. Pt also w/ sepsis: meeting criteria with leukocytosis and fever in setting of above. IP status, will require > 48 hours stay for eval/mgmt of above. Meets [facility] IP criteria for systemic signs of inflammation and evidence of common bile duct disease as outlined above.
[2018-06-17] MEDS: ENOXAPARIN 40 MG/0.4 ML SYR SC SCH (12:13)
--- NOTE | 2018-06-17 12:31 | SOAPPROG ---
MILANA Progress Note Assessment/Plan: Assessment:Plan: 06/15/18 22:56 ERCP was unsuccessful i did not see any ampullary lesion or mass unclear etiology of distal CBD stricture will ask IR to consult for possible PTC if she is stable can be in the morning 06/16/18 11:32 pt feeling well today, no pain no f/c/s her LFT"s did decrease a bit but I still think she needs better drainage as above. bili 8.8 to 6.3 I spoke to IR today and they will see her and if bile ducts are dilated still they will assess for PTC 1) Cholangitis - continue IV abx and see if needs PTC . If needs PTC then will need a rendezvous procedure next week to internalize drain and better evaluate her distal CBD 2) LFT's - down a bit but I still expect her duct is not fully decompressed 06/16/18 11:37 06/17/18 12:26 1) Cholangitis - improved with abx and ERCp was more successful then I thought with decreasing bilirubin and LFT's. She did not have dilated ducts enough for PTC yesterday and her bili is much lower today (bili 8.8 - 6.3 - 2.6 this am). She will need another procedure by our therapeutic endoscopist - I think it can be done on Wednesday afternoon as he is at [facility] doing cases. I will talk to him later today. 2) ID - abx as per primary - prob can be changed to po soon 3) Abdo pain - resolved with deceasing bili and treatment of infection will follow Subjective: CC - cholangitis, distal CBD stricture unclear etiology pt feeling better with no pain and good appetite family in room for visit no f/c/s Objective: Vital Signs Temp Pulse Resp BP Pulse Ox 36.7 C 79 16 121/56 H 95 06/17/18 12:00 06/17/18 12:00 06/17/18 12:00 06/17/18 12:00 06/17/18 12:00 Laboratory Results 06/17/18 04:05 06/17/18 04:05 06/16/18 06/17/18 06/18/18 05:59 05:59 05:59 Intake Total 3250 3248 Output Total 200 2000 Balance 3050 1248 PT 13.6 SEC (12.0-15.0) 06/17/18 04:05 INR 1.02 (0.83-1.16) 06/17/18 04:05 A+Ox3 jaundiced Laboratory Tests 06/15/18 06/15/18 06/16/18 15:05 15:05 04:07 Total Bilirubin 9.1 H 8.8 H 6.3 H AST 401 H 175 H ALT 462 H 273 H Alkaline Phosphatase 258 H 160 H 06/17/18 04:05 Total Bilirubin 2.6 H AST 101 H ALT 196 H Alkaline Phosphatase 157 H CTA S1S2, RRR no m/r/g +BS, soft nt ICD10 Worksheet Patient Problems: Problems Problem Status Onset Cholangitis Acute
[2018-06-17] MEDS ORDERED: LORazepam 2 MG/ML INJ IVP ONE (13:30)
--- NOTE | 2018-06-17 13:33 | ASMTCMCOM ---
CM Note CM Note Notes: Pt s/p ERCP. Another procedure planned for Wednesday. Pt hopefully to transition to po ABX soon. Anticipate d/c with no CM needs however will continue to follow for any change in needs. D/C plan: Anticipate home independent Date Signed: 06/17/2018 01:32 PM Electronically Signed By:DERRICK Goss
[2018-06-17] MEDS ORDERED: GADOBUTROL 10 ML VIAL IVP ONE (14:14)
--- NOTE | 2018-06-17 15:04 | HOSPPROG ---
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 Benton on Wednesday * Acute cholangitis with sepsis (fever/leukocytosis/tachycardia) -IV invanz * HTN -continue lisinopril Subjective: no new complaints. Objective: Vital Signs Temp Pulse Resp BP Pulse Ox 36.7 C 79 16 121/56 H 95 06/17/18 12:00 06/17/18 12:00 06/17/18 12:00 06/17/18 12:00 06/17/18 12:00 Laboratory Results 06/17/18 04:05 06/17/18 04:05 06/16/18 06/17/18 06/18/18 05:59 05:59 05:59 Intake Total 3250 3248 Output Total 200 2000 Balance 3050 1248 PT 13.6 SEC (12.0-15.0) 06/17/18 04:05 INR 1.02 (0.83-1.16) 06/17/18 04:05 case d/w Dr. Blair regarding EUS plan Radiology report from US reviewed - bile duct dilation not present so no IR procedure done - Time Spent With Patient Time Spent with Patient: greater than 35 minutes Time Spent with Patient: Greater than 35 minutes spent on this patients care, greater than 50% of time spent counseling, educating, and coordinating care regarding the above mentioned plan. - Physical Exam Constitutional: no apparent distress, appears nourished, not in pain Cardiovascular: regular rate and rhythym, no murmur, rub, or gallop Respiratory: no respiratory distress, no rales or rhonchi, clear to auscultation Gastrointestinal: normoactive bowel sounds, soft, non-tender abdomen, no palpable masses Skin: no rashes or abrasions, no fluctuance, no induration Neurologic: AAOx3, sensation intact bilaterally Psychiatric: interacting appropriately, not anxious, not encephalopathic, thought process linear ICD10 Worksheet Patient Problems: Problems Problem Status Onset Cholangitis Acute
[2018-06-18] MEDS: LEVOTHYROXINE 137 MCG TAB PO SCH (08:23)
[2018-06-18] MEDS: LISINOPRIL 10 MG TAB PO SCH (08:24)
[2018-06-18] MEDS: OMEGA-3 FATTY ACIDS 1,000 MG CAP PO SCH (08:24)
[2018-06-18] MEDS: ERTAPENEM 1 GM in NS 100 ML IV SCH (08:25)
[2018-06-18] MEDS: ENOXAPARIN 40 MG/0.4 ML SYR SC SCH (08:25)
[2018-06-18] MEDS: SENNOSIDES/DOCUSATE SODIUM TAB PO SCH ×2 (08:28→21:39)
--- NOTE | 2018-06-18 11:26 | HOSPPROG ---
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 Benton on Wednesday Acute cholangitis with sepsis (fever/leukocytosis/tachycardia) -IV invanz HTN -continue lisinopril proph: enox dispo: inpt Subjective: case d/w dr cabrera. lft's continue to improve Objective: Vital Signs Temp Pulse Resp BP Pulse Ox 36.6 C 77 16 146/66 H 95 06/18/18 08:15 06/18/18 08:15 06/18/18 08:15 06/18/18 08:24 06/18/18 08:15 Laboratory Results 06/18/18 04:12 06/17/18 04:05 06/17/18 06/18/18 06/19/18 05:59 05:59 05:59 Intake Total 3248 200 Output Total 2000 1700 Balance 1248 -1500 PT 13.6 SEC (12.0-15.0) 06/17/18 04:05 INR 1.02 (0.83-1.16) 06/17/18 04:05 - Physical Exam Constitutional: no apparent distress, appears nourished Eyes: PERRL, anicteric sclera Ears, Nose, Mouth, Throat: moist mucous membranes, hearing normal Cardiovascular: regular rate and rhythym, no murmur, rub, or gallop Respiratory: no respiratory distress, no rales or rhonchi Gastrointestinal: normoactive bowel sounds, soft, non-tender abdomen, No christine' s sign, No guarding, No rebound Genitourinary: no bladder fullness, No amaya in urethra Skin: warm, normal color Musculoskeletal: full muscle strength, no muscle tenderness Neurologic: AAOx3 ICD10 Worksheet Patient Problems: Problems Problem Status Onset Cholangitis Acute
--- NOTE | 2018-06-18 16:09 | SOAPPROG ---
MILANA Progress Note Assessment/Plan: Assessment:Plan: 06/17/18 12:26 1) Cholangitis - improved with abx and ERCp was more successful then I thought with decreasing bilirubin and LFT's. She did not have dilated ducts enough for PTC yesterday and her bili is much lower today (bili 8.8 - 6.3 - 2.6 this am). She will need another procedure by our therapeutic endoscopist - I think it can be done on Wednesday as he is at [facility] doing cases. I will talk to him later today. 2) ID - abx as per primary - prob can be changed to po soon 3) Abdo pain - resolved with deceasing bili and treatment of infection will follow 06/18/18 16:06 1) Cholangitis - improved with abx and biliary decompression. Bili now down to 1.3 LFT's decreasing but still up MRCP suggest small distal CBD stone as cause. ERCP with Dr. Benton on Wednesday 2) ID -abx as per primary 3) abdo pain - resolved Subjective: cc- Cholangitis and distal CBD stone on MRCP feeling better, pain gone, no f/c/s reassured with MRCP result as she was worried about cancer Objective: Vital Signs Temp Pulse Resp BP Pulse Ox 36.6 C 68 16 151/71 H 95 06/18/18 15:12 06/18/18 15:12 06/18/18 15:12 06/18/18 15:12 06/18/18 15:12 Laboratory Results 06/18/18 04:12 06/17/18 04:05 06/17/18 06/18/18 06/19/18 05:59 05:59 05:59 Intake Total 3248 200 240 Output Total 2000 1700 800 Balance 1248 -1500 -560 PT 13.6 SEC (12.0-15.0) 06/17/18 04:05 INR 1.02 (0.83-1.16) 06/17/18 04:05 A+Ox3 CTA S1S2, RRR +BS, soft nt Laboratory Tests 06/16/18 06/17/18 06/18/18 04:07 04:05 04:12 Total Bilirubin 6.3 H 2.6 H 1.3 AST 175 H 101 H 74 H ALT 273 H 196 H 162 H Alkaline Phosphatase 160 H 157 H 163 H ICD10 Worksheet Patient Problems: Problems Problem Status Onset Cholangitis Acute
[2018-06-19] MEDS: LISINOPRIL 10 MG TAB PO SCH (07:32)
[2018-06-19] MEDS: LEVOTHYROXINE 137 MCG TAB PO SCH (07:33)
--- NOTE | 2018-06-19 09:26 | HOSPPROG ---
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 Benton on Wednesday Acute cholangitis with sepsis (fever/leukocytosis/tachycardia) -IV invanz HTN -continue lisinopril proph: enox hold AM 06/20 dispo: inpt Subjective: case d/w dr cabrera. afebrile Objective: Vital Signs Temp Pulse Resp BP Pulse Ox 36.6 C 74 18 157/77 H 93 06/19/18 07:30 06/19/18 07:30 06/19/18 07:30 06/19/18 07:32 06/19/18 07:30 Laboratory Results 06/18/18 04:12 06/18/18 06/19/18 06/20/18 05:59 05:59 05:59 Intake Total 200 1128 Output Total 1700 2500 Balance -1500 -1372 PT 13.6 SEC (12.0-15.0) 06/17/18 04:05 INR 1.02 (0.83-1.16) 06/17/18 04:05 - Physical Exam Constitutional: no apparent distress, appears nourished Eyes: PERRL, anicteric sclera Ears, Nose, Mouth, Throat: moist mucous membranes, hearing normal Cardiovascular: regular rate and rhythym, no murmur, rub, or gallop Respiratory: no respiratory distress, no rales or rhonchi Gastrointestinal: normoactive bowel sounds, soft, non-tender abdomen, No christine' s sign, No guarding, No rebound Genitourinary: No amaya in urethra Skin: warm, normal color Musculoskeletal: full muscle strength Neurologic: AAOx3 Psychiatric: interacting appropriately ICD10 Worksheet Patient Problems: Problems Problem Status Onset Cholangitis Acute
[2018-06-19] MEDS: SENNOSIDES/DOCUSATE SODIUM TAB PO SCH ×2 (10:03→21:12)
[2018-06-19] MEDS: OMEGA-3 FATTY ACIDS 1,000 MG CAP PO SCH (10:03)
[2018-06-19] MEDS: ERTAPENEM 1 GM in NS 100 ML IV SCH (10:03)
[2018-06-19] MEDS: ENOXAPARIN 40 MG/0.4 ML SYR SC SCH (10:03)
--- NOTE | 2018-06-19 16:39 | SOAPPROG ---
MILANA Progress Note Assessment/Plan: Assessment:Plan: 06/17/18 12:26 1) Cholangitis - improved with abx and ERCp was more successful then I thought with decreasing bilirubin and LFT's. She did not have dilated ducts enough for PTC yesterday and her bili is much lower today (bili 8.8 - 6.3 - 2.6 this am). She will need another procedure by our therapeutic endoscopist - I think it can be done on Wednesday as he is at [facility] doing cases. I will talk to him later today. 2) ID - abx as per primary - prob can be changed to po soon 3) Abdo pain - resolved with deceasing bili and treatment of infection will follow 06/18/18 16:06 1) Cholangitis - improved with abx and biliary decompression. Bili now down to 1.3 LFT's decreasing but still up MRCP suggest small distal CBD stone as cause. ERCP with Dr. Benton on Wednesday 2) ID -abx as per primary 3) abdo pain - resolved 06/19/18 16:37 1) bili up a bit as is alkp (bili 1.3 to 1.5 alkp 163 - 210) - c/w stone still in CBD, for ERCp with Dr Benton at approx noon tomorrow - pending anesthesia availability 2) ID - as per primary 3) abdo pain - resolved 06/19/18 16:40 Subjective: CC- CBD stone with distal cbd stricture feeling well, walking around floor eating po w/o issue no f/c/s no pain Objective: Vital Signs Temp Pulse Resp BP Pulse Ox 36.6 C 86 16 142/77 H 96 06/19/18 15:40 06/19/18 15:40 06/19/18 15:40 06/19/18 15:40 06/19/18 15:40 Laboratory Results 06/18/18 04:12 06/19/18 09:20 06/18/18 06/19/18 06/20/18 05:59 05:59 05:59 Intake Total 200 1128 Output Total 1700 2500 300 Balance -1500 -1372 -300 PT 13.6 SEC (12.0-15.0) 06/17/18 04:05 INR 1.02 (0.83-1.16) 06/17/18 04:05 CTA S1S2, RRR +BS, sot nt Laboratory Tests 06/18/18 06/19/18 04:12 09:20 Total Bilirubin 1.3 1.5 H AST 74 H 75 H ALT 162 H 165 H Alkaline Phosphatase 163 H 210 H ICD10 Worksheet Patient Problems: Problems Problem Status Onset Cholangitis Acute
[2018-06-20] MEDS: ERTAPENEM 1 GM in NS 100 ML IV SCH (08:57)
[2018-06-20] MEDS: LISINOPRIL 10 MG TAB PO SCH (08:58)
[2018-06-20] MEDS: LEVOTHYROXINE 137 MCG TAB PO SCH (09:14)
[2018-06-20] MEDS ORDERED: GLUCAGON HCL 1 MG VIAL ONE (10:30)
[2018-06-20] MEDS ORDERED: IOTHALAMATE MEG (CONRAY) 50 ML VIAL IV ONE (10:31)
[2018-06-20] MEDS ORDERED: INDOMETHACIN 50 MG SUPP PR ONE (11:47)
[2018-06-20] MEDS ORDERED: LIDOCAINE 2% 5 ML SDV ONE (11:50)
[2018-06-20] MEDS ORDERED: PROPOFOL 200 MG/20 ML VIAL ONE (11:50)
[2018-06-20] MEDS ORDERED: SUCCINYLCHOLINE CHLORIDE 200 MG/10 ML SYR IVP ONE (11:52)
--- NOTE | 2018-06-20 11:54 | PDANEPAE ---
ANE History of Present Illness 78 yo with cholangitis ANE Past Medical History - Cardiovascular History Hx Hypertension: Yes Hx Arrhythmias: No Hx Chest Pain: No Hx Coronary Artery / Peripheral Vascular Disease: No Hx CHF / Valvular Disease: No Hx Palpitations: No - Pulmonary History Hx COPD: No Hx Asthma/Reactive Airway Disease: No Hx Recent Upper Respiratory Infection: No Hx Oxygen in Use at Home: No Hx Sleep Apnea: No Sleep Apnea Screening Result - Last Documented: Positive - Endocrine History Hx Diabetes: No Hypothyroid: No Hyperthyroid: No Obesity: no - Renal History Hx Renal Disorders: No - Liver History Hx Hepatic Disorders: Yes - Neurological & Psychiatric Hx Hx Neurological and Psychiatric Disorders: No - Cancer History Hx Cancer: No - Congenital Disorder History Hx Congenital Disorders: No - GI History Hx Gastrointestinal Disorders: Yes ANE Review of Systems Review of systems is: negative Review of Systems: - Exercise capacity METS (RN): 4 METS ANE Patient History - Allergies Allergies/Adverse Reactions: No Known Allergies Allergy (Verified 06/15/18 19:14) - Home Medications Home medications: home medication list seen and reviewed Home Medications: Alendronate Sodium [Fosamax 35 MG] 35 mg PO FR@0800 06/15/18 [Last Taken 3 Days Ago ~06/17/18] Calcium Carb W/Vit D [Calcium Carb W/Vit D 500/200 (*)] 500 mg PO BID 06/15/18 [ Last Taken 3 Days Ago ~06/17/18] Cyclobenzaprine [Flexeril 10 MG (*)] 5 mg PO TID PRN 06/15/18 [Last Taken 3 Days Ago ~06/17/18] Herbals/Supplements -Info Only 1 ea PO DAILY 06/15/18 [Last Taken 3 Days Ago ~] Levothyroxine [Synthroid 137 mcg (*)] 137 mcg PO DAILY 06/15/18 [Last Taken ] Lisinopril [Zestril 10 mg (*)] 10 mg PO DAILY 06/15/18 [Last Taken 06/20/18] [place]-3 Fatty Acids [Fish Oil 1000 mg (*)] 1,000 mg PO DAILY 06/15/18 [Last Taken 3 Days Ago ~06/17/18] - NPO status NPO Status: no food or drink >8 hours NPO Since - Liquids (Date): 06/20/18 NPO Since - Liquids (Time): 11:20 NPO Since - Solids (Date): 06/19/18 NPO Since - Solids (Time): 22:00 - Anes Hx Anes Hx: no prior problems - Smoking Hx Smoking Status: Never smoked - Alcohol Use Alcohol Use: Rarely - Family Anes Hx Family Anes Hx: none ANE Labs/Vital Signs - Labs Result Diagrams: 06/18/18 04:12 06/20/18 04:42 - Vital Signs Blood Pressure: 164/71 Heart Rate: 67 Respiratory Rate: 16 O2 Sat (%): 94 Height: 167.64 cm Weight: 52.163 kg ANE Physical Exam - Airway Neck exam: FROM Mallampati Score: Class 2 Mouth exam: normal dental/mouth exam - Pulmonary Pulmonary: no respiratory distress, clear to auscultation - Cardiovascular Cardiovascular: regular rate and rhythym, no murmur, rub, or gallop - ASA Status ASA Status: III ANE Anesthesia Plan Anesthesia Plan: general endotracheal anesthesia
[2018-06-20] MEDS ORDERED: LABETALOL HCL 20 MG/4 ML INJ IVP PRN (12:15)
[2018-06-20] MEDS ORDERED: NALOXONE HCL 0.4 MG/ML INJ IVP PRN (12:15)
--- NOTE | 2018-06-20 12:15 | POSTANESTH ---
Post Anesthetic Evaluation Cardiovascular Status: Normal, Stable Respiratory Status: Normal, Stable Level of Consciousness/Mental Status: Can Participate in Eval, Moderately Sleepy Pain Control: Adequate, Prn Tx Ordered Nausea/Vomiting Control: Adequate, Prn Tx Ordered Complications Possibly Related to Anesthesia: None Noted
[2018-06-20] MEDS ORDERED: ONDANSETRON 4 MG/2 ML VIAL ONE (12:16)
--- NOTE | 2018-06-20 13:58 | ASMTCMCOM ---
CM Note CM Note Notes: Plan of care reviewed in rounds. 78 year old female admitted with cholangitis and had failed ERCP. Patient to undergo another ERCP today. She is here visiting from [place]. She will likely have no needs at discharge. CM available should needs arise. Plan: DC to home no needs when medically cleared for discharge. Date Signed: 06/20/2018 01:56 PM Electronically Signed By:Perlita Macedo RN
[2018-06-20] MEDS: SENNOSIDES/DOCUSATE SODIUM TAB PO SCH ×2 (16:15→19:53)
[2018-06-20] MEDS: OMEGA-3 FATTY ACIDS 1,000 MG CAP PO SCH (16:15)
--- NOTE | 2018-06-20 16:18 | HOSPPROG ---
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 case d.w dr mcgraw Objective: Vital Signs Temp Pulse Resp BP Pulse Ox 36.2 C 62 16 153/72 H 96 06/20/18 15:51 06/20/18 15:51 06/20/18 15:51 06/20/18 15:51 06/20/18 15:51 Laboratory Results 06/18/18 04:12 06/20/18 04:42 06/19/18 06/20/18 06/21/18 05:59 05:59 05:59 Intake Total 1128 550 620 Output Total 2500 680 750 Balance -1372 -130 -130 PT 13.6 SEC (12.0-15.0) 06/17/18 04:05 INR 1.02 (0.83-1.16) 06/17/18 04:05 - Physical Exam Constitutional: no apparent distress, appears nourished Eyes: PERRL, anicteric sclera Ears, Nose, Mouth, Throat: moist mucous membranes, hearing normal Cardiovascular: regular rate and rhythym, no murmur, rub, or gallop Respiratory: no respiratory distress, no rales or rhonchi Gastrointestinal: normoactive bowel sounds, soft, non-tender abdomen Genitourinary: no bladder fullness, No amaya in urethra Skin: warm, normal color Musculoskeletal: full muscle strength Neurologic: AAOx3 ICD10 Worksheet Patient Problems: Problems Problem Status Onset Cholangitis Acute
[2018-06-20] MEDS ORDERED: NS 1,000 ML IV SCH (18:30)
--- NOTE | 2018-06-20 22:05 | GIREPORT ---
[facility] Surgical Services - Endoscopy Department Patient Name: Silvia Barajas Procedure Date: 06/20/2018 11:59 AM Patient Type: Inpatient Attending MD/ ER Physician: Speedy Benton MD Procedure: Upper EUS Indications: Common bile duct dilation (acquired) seen on CT scan, Elevated liver enzymes, Epigastric abdominal pain, Weight loss Patient Profile: 78 year old female presents for evaluation of biliary obstruction with a distal CBD stricture, elevated liver enzymes, and epigastric abdominal pain. Providers: Speedy Benton MD Medicines: General Anesthesia Complications: No immediate complications. Estimated blood loss: Minimal. Description of Procedure: After obtaining informed consent, the endoscope was passed under direct vision. Throughout the procedure, the patient's blood pressure, pulse, and oxygen saturations were monitored continuously. The Endosonoscope was introduced through the mouth, and advanced to the second part of duoden um. The Endoscope was introduced through the mouth, and advanced to the sec ond part of duodenum. The upper EUS was accomplished without difficulty. Th e esophagus, stomach, and duodenum were visualized endosonographically. T he patient tolerated the procedure well. Findings: Endoscopic Finding : The Z-line was irregular. Biopsies were taken with a cold forceps for histology. Patchy mildly erythematous mucosa was found in the gastric body and in the gastric antrum. Biopsies were taken with a cold forceps for histology. Two small cratered gastric ulcers were found in the gastric antrum. The largest lesion was 5 mm in largest dimension. Biopsies were taken with a cold forceps for histology. The examined duodenum was normal. Endosonographic Finding : There was dilation in the common bile duct which measured up to 7 mm. T he bile duct was thickened distally but no mass lesion was appreciated. One stone was visualized endosonographically in the common bile duct. T he stone measured 4 mm in greatest dimension. The stone was round. It was hyperechoic and characterized by shadowing. There was no sign of significant endosonographic abnormality in the visualized portion of the liver. No masses were identified. Pancreatic parenchymal abnormalities were noted in the entire pancreas. These consisted of hyperechoic foci. The pancreatic duct had a prominently branched endosonographic appearan ce and had hyperechoic gill in the entire pancreas. No lymphadenopathy seen. Estimated Blood Loss: Estimated blood loss was minimal. Post Op Diagnosis: - Z-line irregular. Biopsied. - Erythematous mucosa in the gastric body and antrum. Biopsied. - Gastric ulcers. Biopsied. - Normal examined duodenum. - There was dilation in the common bile duct which measured up to 7 mm. - One stone was visualized endosonographically in the common bile duct. - There was no evidence of significant pathology in the visualized port ion of the liver. - Pancreatic parenchymal abnormalities consisting of hyperechoic foci w ere noted in the entire pancreas. - The pancreatic duct had a prominently branched endosonographic appear ance and had hyperechoic gill in the entire pancreas. - Etiology? Choledocholithiasis with thickened distal CBD. No mass lesi on appreciated. Recommendation: - Perform an ERCP today. - Use a proton pump inhibitor PO daily. - Avoid NSAIDs - Await pathology results. - Thank you for allowing me to participate in the care of your patient. Attending Participation: I personally performed the entire procedure. Speedy Benton MD Speedy Benton MD 06/20/2018 10:04:39 PM This report has been signed electronicallySpeedy Benton MD Number of Addenda: 0 Note Initiated On: 06/20/2018 11:59 AM [email or web address]
--- NOTE | 2018-06-20 23:03 | GPN ---
DATE OF PROCEDURE: 06/20/2018 PROCEDURE: Attempted ERCP. INDICATION: The patient is a 78-year-old female who presents for biliary decompression. She had a recent episode of cholangitis with an MRI showing a distal CBD stone with a possible distal CBD stricture. CONSENT: Risks, benefits, and alternatives of the procedure were discussed in detail with the patient. Risk of infection, bleeding, perforation, sedation, and pancreatitis were discussed. All questions answered. Informed consent obtained. MEDICATIONS: General anesthesia. Please see anesthesia record for details. Indomethacin rectal 100 mg x1. ESTIMATED BLOOD LOSS: Insignificant. ENDOSCOPIC RETROGRADE CHOLANGIOPANCREATOGRAPHY EXAMINATION: The Olympus duodenoscope was introduced into the mouth and advanced to the second portion of the duodenum. The ampulla was brought into view, and there was noted to be evidence of a previously made cut in the ampulla. Multiple attempts were made to cannulate using the wire-guided technique. Unfortunately, the wire kept going in a false tract where the prior cut was performed. Multiple attempts were made to engage the ampulla, but the wire kept going into what was expected to be a false tract. An injection was made, and it was felt this was not the bile duct. After approximately 1-1/2 hours, the procedure was terminated. IMPRESSION: Unsuccessful endoscopic retrograde cholangiopancreatography. RECOMMENDATIONS: 1. N.p.o. 2. Recommend PTC tomorrow. /[id number]/MODL MTDD
--- NOTE | 2018-06-21 08:43 | SOAPPROG ---
SOAP Progress Note Assessment/Plan: Assessment: 1. Ascending cholangitis. 2. CBD stone. 3. Distal CBD stricture; failed ERCP x 2. Plan: Will arrange THC with stent placement if possible today. Ej James MD 06/21/18 08:40 Subjective: CC: CBD stone and stricture with ascending cholangitis. Inter HPI: Patient without complaints. ERCP failed yesterday. Discussed at length (20 minutes) with patient and family rationale for THC; they are all in agreement. Objective: Vital Signs Temp Pulse Resp BP Pulse Ox 36.6 C 71 16 155/66 H 96 06/21/18 07:16 06/21/18 07:16 06/21/18 07:16 06/21/18 07:16 06/21/18 07:16 Laboratory Results 06/18/18 04:12 06/20/18 04:42 06/20/18 06/21/18 06/22/18 05:59 05:59 05:59 Intake Total 550 1009 Output Total 680 1225 900 Balance -130 -216 -900 PT 13.6 SEC (12.0-15.0) 06/17/18 04:05 INR 1.02 (0.83-1.16) 06/17/18 04:05 Laboratory Tests 06/17/18 06/18/18 06/19/18 04:05 04:12 09:20 Total Bilirubin 1.3 1.5 H AST 101 H 74 H 75 H ALT 196 H 162 H 165 H Alkaline Phosphatase 157 H 163 H 210 H 06/20/18 04:42 Total Bilirubin 1.1 AST 243 H ALT 217 H Alkaline Phosphatase 305 H Physical Exam - Physical Exam General Appearance: alert, no apparent distress Respiratory: lungs clear, normal breath sounds Cardiac/Chest: regular rate, rhythm Abdomen: normal bowel sounds, non-tender, soft Skin: normal color, warm/dry Neuro/Psych: alert, normal mood/affect, oriented x 3 ICD10 Worksheet Patient Problems: Problems Problem Status Onset Cholangitis Acute
--- NOTE | 2018-06-21 08:58 | PDRADPRE ---
Radiology History & Physical Indication for procedure: cancer (mCRC Y90 right lobe. Awaiting labs prior to start of procedure) Home medications: Alendronate Sodium [Fosamax 35 MG] 35 mg PO FR@0800 06/15/18 [Last Taken 3 Days Ago ~06/17/18] Calcium Carb W/Vit D [Calcium Carb W/Vit D 500/200 (*)] 500 mg PO BID 06/15/18 [ Last Taken 3 Days Ago ~06/17/18] Cyclobenzaprine [Flexeril 10 MG (*)] 5 mg PO TID PRN 06/15/18 [Last Taken 3 Days Ago ~06/17/18] Herbals/Supplements -Info Only 1 ea PO DAILY 06/15/18 [Last Taken 3 Days Ago ~] Levothyroxine [Synthroid 137 mcg (*)] 137 mcg PO DAILY 06/15/18 [Last Taken ] Lisinopril [Zestril 10 mg (*)] 10 mg PO DAILY 06/15/18 [Last Taken 06/20/18] [place]-3 Fatty Acids [Fish Oil 1000 mg (*)] 1,000 mg PO DAILY 06/15/18 [Last Taken 3 Days Ago ~06/17/18] Allergies/Adverse Reactions: No Known Allergies Allergy (Verified 06/15/18 19:14) Mental status: A&Ox3 Heart exam: regular rate and rhythm Lungs exam: clear to auscultation Mallampati Score: Class 2
--- NOTE | 2018-06-21 08:59 | PDPROPOC ---
Sedation Plan of Care Sedation Plan of Care: vital signs stable, mental status noted, patient educated of risks, benefits, alternatives, patient can tolerate sedation ASA Classification: ASA 2 Planned drugs: fentanyl, midazolam Mallampati Score: Class 2 Mallampati Reference Image: Patient passed 3-3-2 rule?: Yes
[2018-06-21] MEDS: ENOXAPARIN 40 MG/0.4 ML SYR SC SCH (09:07)
[2018-06-21] MEDS: SENNOSIDES/DOCUSATE SODIUM TAB PO SCH ×2 (09:08→21:05)
[2018-06-21] MEDS: LISINOPRIL 10 MG TAB PO SCH (09:08)
[2018-06-21] MEDS: LEVOTHYROXINE 137 MCG TAB PO SCH (09:09)
[2018-06-21] MEDS: OMEGA-3 FATTY ACIDS 1,000 MG CAP PO SCH (09:09)
[2018-06-21] MEDS: ERTAPENEM 1 GM in NS 100 ML IV SCH (10:12)
[2018-06-21] MEDS ORDERED: fentaNYL 100 MCG/2 ML INJ IVP PRN (11:43)
[2018-06-21] MEDS ORDERED: MIDAZOLAM 2 MG/2 ML VIAL IVP PRN (11:43)
[2018-06-21] MEDS ORDERED: MEPERIDINE 25 MG/ML SYR IVP PRN (11:43)
[2018-06-21] MEDS ORDERED: FLUMAZENIL 0.5 MG/5 ML MDV IVP PRN (11:43)
[2018-06-21] MEDS ORDERED: NALOXONE HCL 0.4 MG/ML INJ IVP PRN (11:43)
[2018-06-21] MEDS ORDERED: ceFAZolin 2 GM/DEXTROSE 100 ML IV ONE (11:43)
[2018-06-21] MEDS ORDERED: NS 1,000 ML IV SCH (11:45)
[2018-06-21] MEDS ORDERED: fentaNYL 100 MCG/2 ML INJ ONE (13:00)
[2018-06-21] MEDS ORDERED: MIDAZOLAM 2 MG/2 ML VIAL ONE (13:00)
[2018-06-21] MEDS ORDERED: LIDOCAINE 1% 300 MG/30 ML SDV ONE (13:16)
[2018-06-21] MEDS ORDERED: IOPAMIDOL (ISOVUE-300) 100 ML BTL ONE (13:17)
--- NOTE | 2018-06-21 13:33 | PDRADPN ---
Radiology Procedure Note Date of Procedure: 06/21/18 Radiologist: Amadou Rosas Anesthesia: IV Sedation Pre-op Diagnosis: Biliary obstruction Post-op Diagnosis: Biliary obstruction Indication: Choledocholithiasis Procedure: PTC with internal/external biliary drain placement Finding(s): Filling defect in CBD c/w stone. Internal/external biliary drainage catheter placed for decompression. Inf/Abcess present in the surg proc area at time of surgery?: No Drains: Other (Internal/External biliary drain)
[2018-06-21] MEDS: HYDROCODONE/APAP 5/325 TAB PO PRN ×2 (16:01→21:05)
--- NOTE | 2018-06-21 17:38 | HOSPPROG ---
Hospitalist Progress Note Assessment/Plan: * Retained CBD stone, s/p failed ERCP x 2 -s/p IR percutaneous transhepatic drainage * Acute cholangitis with sepsis (fever/leukocytosis/tachycardia) -IV invanz * HTN -continue lisinopril Subjective: NO new complaints. Objective: Vital Signs Temp Pulse Resp BP Pulse Ox 36.8 C 64 16 166/71 H 95 06/21/18 17:21 06/21/18 17:21 06/21/18 17:21 06/21/18 17:21 06/21/18 17:21 Laboratory Results 06/18/18 04:12 06/20/18 04:42 06/20/18 06/21/18 06/22/18 05:59 05:59 05:59 Intake Total 550 1009 Output Total 680 1225 1275 Balance -130 -216 -1275 PT 13.6 SEC (12.0-15.0) 06/17/18 04:05 INR 1.02 (0.83-1.16) 06/17/18 04:05 - Physical Exam Constitutional: no apparent distress, appears nourished, not in pain Cardiovascular: regular rate and rhythym, no murmur, rub, or gallop Respiratory: no respiratory distress, no rales or rhonchi, clear to auscultation Gastrointestinal: normoactive bowel sounds, soft, non-tender abdomen, no palpable masses Skin: no rashes or abrasions, no fluctuance, no induration Neurologic: AAOx3, sensation intact bilaterally Psychiatric: interacting appropriately, not anxious, not encephalopathic, thought process linear ICD10 Worksheet Patient Problems: Problems Problem Status Onset Cholangitis Acute
[2018-06-22 05:29] LABS: PLATELET COUNT 261 10^3/uL (150-400)
[2018-06-22] MEDS: LEVOTHYROXINE 137 MCG TAB PO SCH (07:23)
[2018-06-22] MEDS: OMEGA-3 FATTY ACIDS 1,000 MG CAP PO SCH (09:23)
[2018-06-22] MEDS: SENNOSIDES/DOCUSATE SODIUM TAB PO SCH ×2 (09:23→20:27)
[2018-06-22] MEDS: LISINOPRIL 10 MG TAB PO SCH (09:23)
[2018-06-22] MEDS: ENOXAPARIN 40 MG/0.4 ML SYR SC SCH (10:28)
[2018-06-22] MEDS: ERTAPENEM 1 GM in NS 100 ML IV SCH (10:28)
--- NOTE | 2018-06-22 11:29 | SOAPPROG ---
SOAP Progress Note Assessment/Plan: Assessment: 1. THC completed yesterday with internal/external drain. 2. CBD stone. 3. Ascending cholangitis; treated. Plan: Will arrange combined radiology/ERCP removal of CBD stone tomorrow with Dr Benton. 30 minutes of counseling and education of patient and family as well as coordination of care with Dr Benton and Radiologist today(11:00-11:30). Ej James MD 06/22/18 11:25 Subjective: CC: CBD stone. Interval HPI: Patient feeling well after THC and drain [placement, Tolerating po well. Objective: Vital Signs Temp Pulse Resp BP Pulse Ox 36.6 C 65 16 149/67 H 95 06/22/18 07:31 06/22/18 07:31 06/22/18 07:31 06/22/18 09:23 06/22/18 07:31 Laboratory Results 06/22/18 04:41 06/22/18 04:41 06/21/18 06/22/18 06/23/18 05:59 05:59 05:59 Intake Total 1009 1500 Output Total 1225 2475 350 Balance -216 -975 -350 PT 13.6 SEC (12.0-15.0) 06/17/18 04:05 INR 1.02 (0.83-1.16) 06/17/18 04:05 Physical Exam - Physical Exam General Appearance: WD/WN, alert, no apparent distress Respiratory: chest non-tender, lungs clear, normal breath sounds Cardiac/Chest: regular rate, rhythm Abdomen: normal bowel sounds, non-tender, soft Skin: normal color, warm/dry Neuro/Psych: alert, normal mood/affect ICD10 Worksheet Patient Problems: Problems Problem Status Onset Cholangitis Acute
--- NOTE | 2018-06-22 12:51 | ASMTCMCOM ---
CM Note CM Note Notes: Patient plan of care reviewed in rounds. She is to undergo repeat ERCP tomorrow. No current needs identified CM available should needs arise. Up in halls ambulating independently. Plan: Likely to dc home independently with good family support when medically cleared for discharge. Date Signed: 06/22/2018 12:50 PM Electronically Signed By:Perlita Macedo RN
--- NOTE | 2018-06-22 14:48 | HOSPPROG ---
Hospitalist Progress Note Assessment/Plan: * Retained CBD stone, s/p failed ERCP x 2 -s/p IR percutaneous transhepatic drainage -combined IR/GI procedure tomorrow -"Rendezvous" procedure with IR to place wire for guidance during repeat ERCP * Acute cholangitis with sepsis (fever/leukocytosis/tachycardia) -IV invanz - continue until stone removed -plan 10 days abx * HTN -continue lisinopril Subjective: Still no complaints. Objective: Vital Signs Temp Pulse Resp BP Pulse Ox 36.4 C 65 16 151/66 H 96 06/22/18 13:41 06/22/18 13:41 06/22/18 13:41 06/22/18 13:41 06/22/18 13:41 Laboratory Results 06/22/18 04:41 06/22/18 04:41 06/21/18 06/22/18 06/23/18 05:59 05:59 05:59 Intake Total 1009 1500 150 Output Total 1225 2475 970 Balance -216 -975 -820 PT 13.6 SEC (12.0-15.0) 06/17/18 04:05 INR 1.02 (0.83-1.16) 06/17/18 04:05 d/w Dr. James regarding procedure tomorrow - Physical Exam Constitutional: no apparent distress, appears nourished, not in pain Cardiovascular: regular rate and rhythym, no murmur, rub, or gallop Respiratory: no respiratory distress, no rales or rhonchi, clear to auscultation Gastrointestinal: normoactive bowel sounds, soft, non-tender abdomen, no palpable masses Skin: no rashes or abrasions, no fluctuance, no induration Neurologic: AAOx3, sensation intact bilaterally Psychiatric: interacting appropriately, not anxious, not encephalopathic, thought process linear ICD10 Worksheet Patient Problems: Problems Problem Status Onset Cholangitis Acute
[2018-06-23] MEDS: LEVOTHYROXINE 137 MCG TAB PO SCH (05:54)
[2018-06-23] MEDS: ERTAPENEM 1 GM in NS 100 ML IV SCH (09:28)
[2018-06-23] MEDS: LISINOPRIL 10 MG TAB PO SCH (09:29)
[2018-06-23] MEDS: OMEGA-3 FATTY ACIDS 1,000 MG CAP PO SCH (09:31)
[2018-06-23] MEDS: SENNOSIDES/DOCUSATE SODIUM TAB PO SCH ×2 (09:31→20:48)
[2018-06-23] MEDS ORDERED: NS 1,000 ML IV SCH (09:45)
--- NOTE | 2018-06-23 10:07 | SOAPPROG ---
SOAP Progress Note Assessment/Plan: Assessment: 1. CBD stone: S/P THC with internal external stent in place.. 2. Ascending cholangitis; treated. Plan: Combined radiology/ERCP removal of CBD stone at 4PM today with Dr Benton. Ej James MD 06/23/18 10:05 Objective: Vital Signs Temp Pulse Resp BP Pulse Ox 36.9 C 74 16 129/69 H 94 06/23/18 08:46 06/23/18 08:46 06/23/18 08:46 06/23/18 08:46 06/23/18 08:46 Laboratory Results 06/22/18 04:41 06/22/18 04:41 06/22/18 06/23/18 06/24/18 05:59 05:59 05:59 Intake Total 1500 1250 450 Output Total 2475 2270 650 Balance -975 -1020 -200 PT 13.6 SEC (12.0-15.0) 06/17/18 04:05 INR 1.02 (0.83-1.16) 06/17/18 04:05 ICD10 Worksheet Patient Problems: Problems Problem Status Onset Cholangitis Acute
[2018-06-23] MEDS ORDERED: GLUCAGON HCL 1 MG VIAL ONE (15:15)
[2018-06-23] MEDS ORDERED: INDOMETHACIN 50 MG SUPP PR ONE (15:15)
[2018-06-23] MEDS ORDERED: IOTHALAMATE MEG (CONRAY) 50 ML VIAL IV ONE (15:15)
--- NOTE | 2018-06-23 16:11 | HOSPPROG ---
Hospitalist Progress Note Assessment/Plan: * Retained CBD stone, s/p failed ERCP x 2 -s/p IR percutaneous transhepatic drainage -combined IR/GI procedure today -"Rendezvous" procedure with IR to place wire for guidance during repeat ERCP * Acute cholangitis with sepsis (fever/leukocytosis/tachycardia) -IV invanz - continue until stone removed -plan 10 days abx * HTN -continue lisinopril Subjective: Patient reports no pain this morning Objective: Vital Signs Temp Pulse Resp BP Pulse Ox 36.9 C 74 16 180/72 H 96 06/23/18 15:38 06/23/18 15:38 06/23/18 15:38 06/23/18 15:38 06/23/18 15:38 Laboratory Results 06/22/18 04:41 06/22/18 04:41 06/22/18 06/23/18 06/24/18 05:59 05:59 05:59 Intake Total 1500 1250 450 Output Total 2475 2270 750 Balance -975 -1020 -300 PT 13.6 SEC (12.0-15.0) 06/17/18 04:05 INR 1.02 (0.83-1.16) 06/17/18 04:05 - Physical Exam Constitutional: no apparent distress Eyes: PERRL Ears, Nose, Mouth, Throat: moist mucous membranes Cardiovascular: regular rate and rhythym Respiratory: no respiratory distress Gastrointestinal: soft, non-tender abdomen Genitourinary: No amaay in urethra Skin: warm Musculoskeletal: full muscle strength Neurologic: AAOx3 Psychiatric: interacting appropriately ICD10 Worksheet Patient Problems: Problems Problem Status Onset Cholangitis Acute
[2018-06-23] MEDS ORDERED: PROPOFOL/EMULSION 500 MG/50 ML BOTTLE IV ONE (16:38)
[2018-06-23] MEDS ORDERED: fentaNYL 100 MCG/2 ML INJ ONE (16:40)
[2018-06-23] MEDS ORDERED: DEXAMETHASONE 4 MG/ML VIAL ONE (16:59)
[2018-06-23] MEDS ORDERED: LR 500 ML IV PRN (17:11)
[2018-06-23] MEDS ORDERED: LABETALOL HCL 20 MG/4 ML INJ IVP PRN (17:11)
[2018-06-23] MEDS ORDERED: HYDROmorphONE/DILAUDID 2 MG/ML INJ IVP PRN (17:11)
[2018-06-23] MEDS ORDERED: NS 500 ML IV PRN (17:11)
[2018-06-23] MEDS ORDERED: ALBUTEROL 3 ML DEYVIAL IH PRN (17:11)
[2018-06-23] MEDS ORDERED: DEXAMETHASONE 4 MG/ML VIAL IVP PRN (17:11)
[2018-06-23] MEDS ORDERED: fentaNYL 100 MCG/2 ML INJ IVP PRN (17:11)
[2018-06-23] MEDS ORDERED: ONDANSETRON 4 MG/2 ML VIAL IVP PRN (17:11)
[2018-06-23] MEDS ORDERED: NALOXONE HCL 0.4 MG/ML INJ IVP PRN (17:11)
--- NOTE | 2018-06-23 17:11 | PDANEPAE ---
ANE History of Present Illness here for ERCP ANE Past Medical History - Cardiovascular History Hx Hypertension: Yes Hx Arrhythmias: No Hx Chest Pain: No Hx Coronary Artery / Peripheral Vascular Disease: No Hx CHF / Valvular Disease: No Hx Palpitations: No - Pulmonary History Hx COPD: No Hx Asthma/Reactive Airway Disease: No Hx Recent Upper Respiratory Infection: No Hx Oxygen in Use at Home: No Hx Sleep Apnea: No Sleep Apnea Screening Result - Last Documented: Positive - Endocrine History Hx Diabetes: No Hypothyroid: No Hyperthyroid: No Obesity: no - Renal History Hx Renal Disorders: No - Liver History Hx Hepatic Disorders: Yes - Neurological & Psychiatric Hx Hx Neurological and Psychiatric Disorders: No - Cancer History Hx Cancer: No - Congenital Disorder History Hx Congenital Disorders: No - GI History Hx Gastrointestinal Disorders: Yes ANE Review of Systems Review of Systems: - Exercise capacity METS (RN): 4 METS ANE Patient History - Allergies Allergies/Adverse Reactions: No Known Allergies Allergy (Verified 06/15/18 19:14) - Home Medications Home medications: home medication list seen and reviewed Home Medications: Alendronate Sodium [Fosamax 35 MG] 35 mg PO FR@0800 06/15/18 [Last Taken 3 Days Ago ~06/17/18] Calcium Carb W/Vit D [Calcium Carb W/Vit D 500/200 (*)] 500 mg PO BID 06/15/18 [ Last Taken 3 Days Ago ~06/17/18] Cyclobenzaprine [Flexeril 10 MG (*)] 5 mg PO TID PRN 06/15/18 [Last Taken 3 Days Ago ~06/17/18] Herbals/Supplements -Info Only 1 ea PO DAILY 06/15/18 [Last Taken 3 Days Ago ~] Levothyroxine [Synthroid 137 mcg (*)] 137 mcg PO DAILY06 06/15/18 [Last Taken ] Lisinopril [Zestril 10 mg (*)] 10 mg PO DAILY 06/15/18 [Last Taken 06/20/18] Lowry-3 Fatty Acids [Fish Oil 1000 mg (*)] 1,000 mg PO DAILY 06/15/18 [Last Taken 3 Days Ago ~06/17/18] - NPO status NPO Status: no food or drink >8 hours NPO Since - Liquids (Date): 06/23/18 NPO Since - Liquids (Time): 08:00 NPO Since - Solids (Date): 06/22/18 NPO Since - Solids (Time): 19:00 - Smoking Hx Smoking Status: Never smoked - Alcohol Use Alcohol Use: Rarely ANE Labs/Vital Signs - Labs Result Diagrams: 06/22/18 04:41 06/22/18 04:41 - Vital Signs Blood Pressure: 180/72 Heart Rate: 74 Respiratory Rate: 16 O2 Sat (%): 96 Height: 167.64 cm Weight: 52.163 kg ANE Physical Exam - Airway Neck exam: FROM Mallampati Score: Class 1 Mouth exam: normal dental/mouth exam - Pulmonary Pulmonary: no respiratory distress - Cardiovascular Cardiovascular: regular rate and rhythym - ASA Status ASA Status: II ANE Anesthesia Plan Anesthesia Plan: general endotracheal anesthesia
[2018-06-23] MEDS ORDERED: SUGAMMADEX SODIUM 200 MG/2 ML VIAL IVP ONE (17:27)
--- NOTE | 2018-06-23 17:45 | GIREPORT ---
[facility] Surgical Services - Endoscopy Department Patient Name: Silvia Barajas Procedure Date: 06/23/2018 2:46 PM Patient Type: Inpatient Attending MD/ ER Physician: Speedy Benton MD Procedure: ERCP Indications: Bile duct stone(s) Patient Profile: 78 year old female presents for removal of a CBD stone. She had a prior unsuccessful ERCP and has an internal external drain. She presents for biliary decompression. Providers: Speedy Benton MD Medicines: General Anesthesia Complications: No immediate complications. Estimated blood loss: Minimal. Description of Procedure: After obtaining informed consent, the scope was passed under direct vis ion. Throughout the procedure, the patient's blood pressure, pulse, and oxyg en saturations were monitored continuously. The Duodenalscope was introduc ed through the mouth, and advanced to the duodenum and used to cannulate t he bile duct. The ERCP was accomplished without difficulty. The patient tolerated the procedure well. Findings: A biliary drain was visible on the optical element coater film. The esophagus was successfully intubated under direct vision. The scope was advanced to a normal major papilla in the descending duodenum without detailed examin ation of the pharynx, larynx and associated structures, and upper GI tract. T he upper GI tract was grossly normal. The ampulla was seen and an internal drain was emanating from the ampulla. A wire was passed into the biliar y tree alongside the drain. An injection was performed for confirmatin. T he short-nosed traction sphincterotome was passed over the guidewire and t he bile duct was then deeply cannulated. Contrast was injected. I personal ly interpreted the bile duct images. A wire was placed by IR through the d rain into the duodenum and the drain was pulled into the intrahepatics. Duct al flow of contrast was adequate. Image quality was adequate. Contrast ext ended to the entire biliary tree on cholangiogram. The middle third of the ma in bile duct contained one stone, which was 7 mm in diameter. A 10 mm bili chacha sphincterotomy was made with a traction (standard) sphincterotome using pure cut current. The sphincterotomy oozed blood. The biliary tree was swept with a 12 mm balloon starting at the bifurcation. Sludge was swept from the duct. One 7mm stone was removed. No stones remained. The drain was then repla alonzo by IR. Estimated Blood Loss: Estimated blood loss was minimal. Post Op Diagnosis: - Choledocholithiasis was found. Complete removal was accomplished by biliary sphincterotomy and balloon extraction. - A biliary sphincterotomy was performed. - The biliary tree was swept. Recommendation: - Return [facility] to [facility] care. - NPO. - Continue present medications. - Thank you for allowing me to participate in the care of your patient. Attending Participation: I personally performed the entire procedure. Speedy Benton MD Speedy Benton MD 06/23/2018 5:45:05 PM This report has been signed electronicallySpeedy Benton MD Number of Addenda: 0 Note Initiated On: 06/23/2018 2:46 PM [email or web address]
[2018-06-23] MEDS ORDERED: IOPAMIDOL (ISOVUE-300) 100 ML BTL ONE (18:31)
[2018-06-23] MEDS: HYDROCODONE/APAP 5/325 TAB PO PRN (23:08)
[2018-06-24 05:16] LABS: PLATELET COUNT 306 10^3/uL (150-400)
[2018-06-24] MEDS: LEVOTHYROXINE 137 MCG TAB PO SCH (05:31)
[2018-06-24] MEDS: OMEGA-3 FATTY ACIDS 1,000 MG CAP PO SCH (08:36)
[2018-06-24] MEDS: SENNOSIDES/DOCUSATE SODIUM TAB PO SCH ×2 (08:36→22:15)
[2018-06-24] MEDS: LISINOPRIL 10 MG TAB PO SCH (08:37)
[2018-06-24] MEDS: ERTAPENEM 1 GM in NS 100 ML IV SCH (08:38)
--- NOTE | 2018-06-24 10:30 | SOAPPROG ---
SOAP Progress Note Assessment/Plan: Assessment: 1. CBD stone: S/P THC with internal external drain and S/P ERCP, papillotomy and CBD stone extraction by Dr Benton yesterday. 2. Ascending cholangitis; treated. Plan: 1. Discussed case with Dr. Benton and Dr. Starkey. Dr Starkey will have IR nurse come to bedside and cap external drain so that bile drainage internal only. 2. GENE. 3. OK to D/C later today or tomorrow am with catheter bandaged to side. 4. IR will arrange for appointment with Dr Starkey to removed THC drain the week of (on patient's return to [place]. (45 minutes of counseling and education of patient, and coordination of care with other doctors performed today). Ej James MD 06/24/18 10:19 Subjective: CC: CBD stone, ascending cholangitis. Interval HPI: Patient doing well without abdominal pain after ERCP. Papillotomy and CBD stone removal last night by Dr. Benton. Patient would like to go home to [place] and return to [place] to have external drain removed in the future. Objective: Vital Signs Temp Pulse Resp BP Pulse Ox 36.9 C 70 16 129/64 H 96 06/24/18 07:33 06/24/18 07:33 06/24/18 07:33 06/24/18 08:37 06/24/18 07:33 Laboratory Results 06/24/18 04:45 06/24/18 04:45 06/23/18 06/24/18 06/25/18 05:59 05:59 05:59 Intake Total 1250 1950 Output Total 2270 1155 300 Balance -1020 795 -300 PT 13.6 SEC (12.0-15.0) 06/17/18 04:05 INR 1.02 (0.83-1.16) 06/17/18 04:05 Physical Exam - Physical Exam General Appearance: WD/WN, alert, no apparent distress Respiratory: lungs clear, normal breath sounds Cardiac/Chest: regular rate, rhythm Abdomen: normal bowel sounds, non-tender, soft (THC tube skin site clean and dry.) Skin: normal color, warm/dry Neuro/Psych: normal mood/affect, oriented x 3 ICD10 Worksheet Patient Problems: Problems Problem Status Onset Cholangitis Acute
--- NOTE | 2018-06-24 11:42 | ASMTCMCOM ---
CM Note CM Note Notes: Pt had GI procedure yesterday which was successful in dislodging the stone; however, pt still has drain in place, which will be clamped. IR RN to provide education on drain care until it can be removed at her appointment on . Likely to discharge to daughter's house here in [place] tomorrow. Pt lives in [place]. D/C Plan: Independent. Date Signed: 06/24/2018 11:41 AM Electronically Signed By:Zenobia Mayo
--- NOTE | 2018-06-24 14:23 | HOSPPROG ---
Hospitalist Progress Note Assessment/Plan: * Retained CBD stone, s/p failed ERCP x 2 -s/p IR percutaneous transhepatic drainage -combined IR/GI procedure yesterday, with removal of CBG stone -LFTs continue to improve * Acute cholangitis with sepsis (fever/leukocytosis/tachycardia) -IV invanz, s/p 9 days of IV Ertapenum, will d/c today after CBG removal yesterday * HTN -continue lisinopril Dispo: Plan for discharge tomorrow if able to tolerate diet well Subjective: Pateint reports one episode of pain overnight Objective: Vital Signs Temp Pulse Resp BP Pulse Ox 37 C 65 16 158/66 H 94 06/24/18 12:44 06/24/18 12:44 06/24/18 12:44 06/24/18 12:44 06/24/18 12:44 Laboratory Results 06/24/18 04:45 06/24/18 04:45 06/23/18 06/24/18 06/25/18 05:59 05:59 05:59 Intake Total 1250 1950 Output Total 2270 1155 300 Balance -1020 795 -300 PT 13.6 SEC (12.0-15.0) 06/17/18 04:05 INR 1.02 (0.83-1.16) 06/17/18 04:05 - Physical Exam Constitutional: no apparent distress Eyes: PERRL Ears, Nose, Mouth, Throat: moist mucous membranes Cardiovascular: regular rate and rhythym Respiratory: no respiratory distress Gastrointestinal: soft, non-tender abdomen Skin: warm Neurologic: AAOx3 Psychiatric: interacting appropriately ICD10 Worksheet Patient Problems: Problems Problem Status Onset Cholangitis Acute
[2018-06-24] MEDS ORDERED: HYDROCODONE/APAP 5/325 TAB PO PRN (14:55)
[2018-06-25] MEDS: LEVOTHYROXINE 137 MCG TAB PO SCH (04:53)
[2018-06-25 08:34] VITALS: BP 149/64
[2018-06-25] MEDS: LISINOPRIL 10 MG TAB PO SCH (09:03)
[2018-06-25] MEDS: SENNOSIDES/DOCUSATE SODIUM TAB PO SCH (09:03)
[2018-06-25] MEDS: OMEGA-3 FATTY ACIDS 1,000 MG CAP PO SCH (09:03)
--- NOTE | 2018-06-25 11:17 | SOAPPROG ---
SOAP Progress Note Assessment/Plan: Assessment: Patient with CBD stone, required IR with PTC and wire placement. Subsequent ERCP with stone removal. Plan: Ok for d/d home today, Follow up with OIR for PTC drain removal as outpatient. 06/25/18 11:14 Subjective: CC: Cholangitis and CBD stone Feeling well without abdominal pain Objective: Vital Signs Temp Pulse Resp BP Pulse Ox 36.5 C 70 16 149/64 H 95 06/25/18 08:33 06/25/18 08:33 06/25/18 08:33 06/25/18 09:03 06/25/18 08:33 Laboratory Results 06/24/18 04:45 06/24/18 04:45 06/24/18 06/25/18 06/26/18 05:59 05:59 05:59 Intake Total 1950 1000 Output Total 1155 1125 Balance 795 -125 PT 13.6 SEC (12.0-15.0) 06/17/18 04:05 INR 1.02 (0.83-1.16) 06/17/18 04:05 Generic Name Dose Route Start Last Admin Trade Name Freq PRN Reason Stop Dose Admin Acetaminophen 650 mg 06/15/18 20:34 Tylenol PO 12/12/18 20:33 Q4HRS PRN Pain, Mild/Fever, Can Take PO Hydrocodone Bitart/Acetaminophen 1 - 2 tab 06/24/18 14:55 [place] 5/325 PO 07/04/18 14:54 Q4HRS PRN Pain, Moderate Able to Take PO Bisacodyl 10 mg 06/16/18 09:55 Dulcolax Rectal [place] 12/13/18 09:54 DAILY PRN Constipation Protocol Cyclobenzaprine HCl 5 mg 06/15/18 20:36 Flexeril PO 12/12/18 20:35 TID PRN MUSCLE SPASMS Sodium Chloride 1,000 mls @ 125 mls/hr 06/23/18 09:45 Ns IV 12/20/18 09:44 CONT SID Lactulose 20 gm 06/16/18 09:55 Cephulac PO 12/13/18 09:54 TID PRN Constipation Protocol Levothyroxine Sodium 137 mcg 06/23/18 06:00 06/25/18 04:53 Synthroid PO 12/20/18 05:59 137 mcg DAILY06 SID Administration Lisinopril 10 mg 06/16/18 09:00 06/25/18 09:03 Zestril PO 12/13/18 08:59 10 mg DAILY SID Administration Magnesium Hydroxide 30 ml 06/16/18 09:55 Milk Of Magnesia PO 12/13/18 09:54 DAILY PRN Constipation Protocol [id number] Ethyl Esters 1,000 mg 06/16/18 09:00 06/25/18 09:03 Fish Oil PO 12/13/18 08:59 1,000 mg DAILY SID Administration Ondansetron HCl 4 mg 06/15/18 20:34 Zofran IVP 12/12/18 20:33 Q4HRS PRN Nausea/Vomiting, Can't Take PO Ondansetron HCl 4 mg 06/15/18 20:34 Zofran Odt PO 12/12/18 20:33 Q4HRS PRN Nausea/Vomiting, Use 1st Oxycodone HCl 5 - 10 mg 06/15/18 20:34 06/16/18 00:23 Oxycodone Ir PO 06/25/18 20:33 10 mg Q3HRS PRN Administration Pain, Severe Able to Take PO Polyethylene Glycol 17 gm 06/16/18 09:55 Miralax PO 12/13/18 09:54 DAILY PRN Constipation, patient prefers Protocol Promethazine HCl 6.25 - 12.5 mg 06/15/18 20:34 Phenergan IVP 12/12/18 20:33 Q6HRS PRN Nausea/Vomiting, Use 2nd Senna/Docusate Sodium 1 - 2 tab 06/16/18 21:00 06/25/18 09:03 Senokot-S PO 12/13/18 20:59 1 tab BID SID Administration Protocol Discontinued Medications Generic Name Dose Route Start Last Admin Trade Name Freq PRN Reason Stop Dose Admin Acetaminophen 650 mg 06/15/18 15:32 06/15/18 15:45 Tylenol PO 06/15/18 15:33 650 mg EDNOW ONE Administration Hydrocodone Bitart/Acetaminophen 1 - 2 tab 06/15/18 20:34 06/23/18 23:08 [place] 5/325 PO 06/25/18 20:33 1 tab Q4HRS PRN Administration Pain, Moderate Able to Take PO Albuterol 3 ml 06/23/18 17:11 Proventil Neb IH 06/23/18 18:11 Q10M PRN PACU, Wheezing Alteplase, Recombinant 0 mg 06/16/18 14:19 Cathflo Activase IVP 06/16/18 15:19 ONCALL PRN Per provider during procedure Dexamethasone Confirm 06/15/18 21:23 Decadron Injection Administered 06/15/18 21:24 Dose 4 mg .ROUTE .STK-MED ONE Dexamethasone Confirm 06/23/18 16:59 Decadron Injection Administered 06/23/18 17:00 Dose 4 mg .ROUTE .STK-MED ONE Dexamethasone 4 mg 06/23/18 17:11 Decadron Injection IVP 06/23/18 18:11 ONCE PRN PACU, Nausea/Vomiting Enoxaparin Sodium 40 mg 06/17/18 12:00 06/22/18 10:28 Lovenox SC 12/14/18 11:59 40 mg DAILY SID Administration Fentanyl Confirm 06/15/18 20:44 Sublimaze Administered 06/15/18 20:45 Dose 100 mcg .ROUTE .STK-MED ONE Fentanyl 25 - 100 mcg 06/15/18 20:50 Sublimaze IVP 06/15/18 21:50 Q5M PRN PACU, IMMEDIATE Pain control Fentanyl 0 mcg 06/16/18 14:19 Sublimaze IVP 06/16/18 15:19 ONCALL PRN Per provider during procedure Fentanyl 0 mcg 06/21/18 11:43 06/21/18 13:32 Sublimaze IVP 06/21/18 12:44 175 mcg ONCALL PRN Administration Per provider during procedure Fentanyl Confirm 06/21/18 13:00 Sublimaze Administered 06/21/18 13:01 Dose 100 mcg .ROUTE .STK-MED ONE Fentanyl Confirm 06/23/18 16:40 Sublimaze Administered 06/23/18 16:41 Dose 100 mcg .ROUTE .STK-MED ONE Fentanyl 25 - 100 mcg 06/23/18 17:11 Sublimaze IVP 06/23/18 18:11 Q5M PRN PACU, IMMEDIATE Pain control Flumazenil 0 mg 06/16/18 14:19 Romazicon IVP 06/16/18 15:19 ONCALL PRN Per provider during procedure Flumazenil 0 mg 06/21/18 11:43 Romazicon IVP 06/21/18 12:44 ONCALL PRN Per provider during procedure Gadobutrol Confirm 06/17/18 14:14 Gadavist 1 Mmol/Ml Administered 06/17/18 14:15 Dose 10 ml IVP .STK-MED ONE Glucagon Confirm 06/15/18 20:51 Glucagon Administered 06/15/18 20:52 Dose 1 mg .ROUTE .STK-MED ONE Glucagon 0.5 mg 06/16/18 14:19 Glucagon IVP 06/16/18 15:19 ONCALL PRN Per provider during procedure Glucagon Confirm 06/20/18 10:30 Glucagon Administered 06/20/18 10:31 Dose 1 mg .ROUTE .STK-MED ONE Glucagon Confirm 06/23/18 15:15 Glucagon Administered 06/23/18 15:16 Dose 1 mg .ROUTE .STK-MED ONE Heparin Sodium (Porcine) Confirm 06/16/18 13:09 Heparin Flush 2,000 Unit/Ns 1,000 Ml Administered 06/16/18 13:10 Dose 2,000 unit .ROUTE .STK-MED ONE Heparin Sodium (Porcine) 0 unit 06/16/18 14:19 Heparin Injection IVP 06/16/18 15:19 ONCALL PRN Per provider during procedure Hydromorphone HCl 0.2 - 0.4 mg 06/15/18 20:34 Dilaudid IVP 06/25/18 20:33 Q4HRS PRN Pain, Severe Unable to Take PO Hydromorphone HCl 0.1 - 0.4 mg 06/23/18 17:11 Dilaudid IVP 06/23/18 18:11 Q10M PRN PACU, PAIN Sodium Chloride 1,000 mls @ 0 mls/hr 06/15/18 15:10 06/15/18 15:15 Ns IV 06/15/18 15:11 1,000 mls EDNOW ONE Administration Protocol Wide Open Sodium Chloride 1,000 mls @ 0 mls/hr 06/15/18 16:01 06/15/18 16:06 Ns IV 06/15/18 16:02 1,000 mls EDNOW ONE Administration Protocol Wide Open Ertapenem 1 gm/ Sodium 100 mls @ 200 mls/hr 06/15/18 17:53 06/15/18 18:38 Chloride IV 06/15/18 18:22 100 mls EDNOW ONE Administration Protocol Sodium Chloride 1,000 mls @ 125 mls/hr 06/15/18 20:45 06/16/18 20:13 Ns IV 12/12/18 20:44 1,000 mls CONT SID Administration Lactated Ringer's 1,000 mls @ 0 mls/hr 06/15/18 20:46 06/16/18 00:19 Lr IV 06/15/18 20:47 Not Given ONCE ONE KVO Ertapenem 1 gm/ Sodium 100 mls @ 200 mls/hr 06/16/18 09:00 06/24/18 08:38 Chloride IV 06/25/18 09:45 100 mls DAILY SID Administration Protocol Cefazolin Sodium/Dextrose 100 mls @ 200 mls/hr 06/16/18 14:19 06/16/18 16:13 Ancef IV 06/16/18 14:48 Not Given ONCALL ONE Protocol Sodium Chloride 1,000 mls @ 30 mls/hr 06/16/18 14:30 Ns IV 12/13/18 14:29 CONT SID Sodium Chloride 1,000 mls @ 125 mls/hr 06/20/18 18:30 06/20/18 18:39 Ns IV 12/17/18 18:29 1,000 mls CONT SID Administration Cefazolin Sodium/Dextrose 100 mls @ 200 mls/hr 06/21/18 11:43 06/21/18 14:06 Ancef IV 06/21/18 12:12 Not Given ONCALL ONE Protocol Sodium Chloride 1,000 mls @ 30 mls/hr 06/21/18 11:45 06/21/18 13:33 Ns IV 12/18/18 11:44 1,000 mls CONT SID Administration Lactated Ringer's 500 mls @ 0 mls/hr 06/23/18 17:11 Lr IV 06/23/18 18:11 PRN PRN PACU, Nausea/Vomiting Post-Op Wide Open Sodium Chloride 500 mls @ 0 mls/hr 06/23/18 17:11 Ns IV 06/23/18 18:11 PRN PRN PACU, Nausea/Vomiting Post-Op Wide Open Indomethacin Confirm 06/15/18 22:26 Indocin Rectal Administered 06/15/18 22:27 Dose 100 mg TX .STK-MED ONE Indomethacin 100 mg 06/15/18 23:30 06/15/18 23:30 Indocin Rectal TX 06/15/18 23:31 100 mg .STK-MED ONE Administration Indomethacin Confirm 06/20/18 11:47 06/20/18 12:28 Indocin Rectal Administered 06/20/18 11:48 100 mg Dose Administration 100 mg TX .STK-MED ONE Indomethacin Confirm 06/23/18 15:15 Indocin Rectal Administered 06/23/18 15:16 Dose 100 mg [place] .STK-MED ONE Iopamidol Confirm 06/15/18 17:21 Isovue-300 Administered 06/15/18 17:22 Dose 150 ml .ROUTE .STK-MED ONE Iopamidol Confirm 06/16/18 13:09 Isovue-300 Administered 06/16/18 13:10 Dose 100 ml .ROUTE .STK-MED ONE Iopamidol Confirm 06/21/18 13:17 Isovue-300 Administered 06/21/18 13:18 Dose 100 ml .ROUTE .STK-MED ONE Iopamidol Confirm 06/23/18 18:31 Isovue-300 Administered 06/23/18 18:32 Dose 100 ml .ROUTE .STK-MED ONE Iothalamate Meglumine Confirm 06/15/18 20:51 Conray Administered 06/15/18 20:52 Dose 50 ml IV .STK-MED ONE Iothalamate Meglumine Confirm 06/20/18 10:31 Conray Administered 06/20/18 10:32 Dose 50 ml IV .STK-MED ONE Iothalamate Meglumine Confirm 06/23/18 15:15 Conray Administered 06/23/18 15:16 Dose 50 ml IV .STK-MED ONE Labetalol HCl 5 - 10 mg 06/20/18 12:15 Labetalol Hcl IVP 06/20/18 13:15 Q10M PRN PACU, Hypertension Labetalol HCl 5 - 10 mg 06/23/18 17:11 Labetalol Hcl IVP 06/23/18 18:11 Q10M PRN PACU, Hypertension Levothyroxine Sodium 137 mcg 06/16/18 09:00 06/22/18 07:23 Synthroid PO 12/13/18 08:59 137 mcg DAILY SID Administration Lidocaine HCl Confirm 06/15/18 20:43 Xylocaine-Mpf 2% Vial Administered 06/15/18 20:44 Dose 5 ml .ROUTE .STK-MED ONE Lidocaine HCl Confirm 06/16/18 13:09 Lidocaine Hcl 1% Administered 06/16/18 13:10 Dose 300 mg .ROUTE .STK-MED ONE Lidocaine HCl Confirm 06/20/18 11:50 Xylocaine-Mpf 2% Vial Administered 06/20/18 11:51 Dose 5 ml .ROUTE .STK-MED ONE Lidocaine HCl Confirm 06/21/18 13:16 Lidocaine Hcl 1% Administered 06/21/18 13:17 Dose 300 mg .ROUTE .STK-MED ONE Lorazepam 1 mg 06/17/18 13:30 06/17/18 13:59 Ativan Injection IVP 06/17/18 13:31 1 mg ONCALL ONE Administration Meperidine HCl 25 - 50 mg 06/16/18 14:19 Demerol 25 Mg/Ml Syringe IVP 06/16/18 15:19 ONCALL PRN Tremors DURING procedure Meperidine HCl 25 - 50 mg 06/21/18 11:43 Demerol 25 Mg/Ml Syringe IVP 06/21/18 12:44 ONCALL PRN Tremors DURING procedure Midazolam HCl 0 mg 06/16/18 14:19 Versed IVP 06/16/18 15:19 ONCALL PRN Per provider during procedure Midazolam HCl 0 mg 06/21/18 11:43 06/21/18 13:32 Versed IVP 06/21/18 12:44 3.5 mg ONCALL PRN Administration Per provider during procedure Midazolam HCl Confirm 06/21/18 13:00 Versed Administered 06/21/18 13:01 Dose 2 mg .ROUTE .STK-MED ONE Naloxone HCl 0.1 mg 06/15/18 20:50 Narcan IVP 06/15/18 21:50 Q2M PRN PACU Resp Rate <10/min Naloxone HCl 0 mg 06/16/18 14:19 Narcan IVP 06/16/18 15:19 ONCALL PRN Per provider during procedure Naloxone HCl 0.1 mg 06/20/18 12:15 Narcan IVP 06/20/18 13:15 Q2M PRN PACU Resp Rate <10/min Naloxone HCl 0 mg 06/21/18 11:43 Narcan IVP 06/21/18 12:44 ONCALL PRN Per provider during procedure Naloxone HCl 0.1 mg 06/23/18 17:11 Narcan IVP 06/23/18 18:11 Q2M PRN PACU Resp Rate <10/min Ondansetron HCl 2 - 4 mg 06/15/18 20:50 Zofran IVP 06/15/18 21:50 Q10M PRN PACU, Nausea/Vomiting Ondansetron HCl Confirm 06/15/18 21:23 Zofran Administered 06/15/18 21:24 Dose 4 mg .ROUTE .STK-MED ONE Ondansetron HCl Confirm 06/20/18 12:16 Zofran Administered 06/20/18 12:17 Dose 4 mg .ROUTE .STK-MED ONE Ondansetron HCl 2 - 4 mg 06/23/18 17:11 Zofran IVP 06/23/18 18:11 Q10M PRN PACU, Nausea/Vomiting Propofol Confirm 06/15/18 20:44 Diprivan Administered 06/15/18 20:45 Dose 200 mg .ROUTE .STK-MED ONE Propofol Confirm 06/20/18 11:50 Diprivan Administered 06/20/18 11:51 Dose 200 mg .ROUTE .STK-MED ONE Propofol Confirm 06/23/18 16:38 Diprivan 10 Mg/Ml (Premix) Administered 06/23/18 16:39 Dose 500 mg IV .STK-MED ONE Protamine Sulfate 0 mg 06/16/18 14:19 Protamine Sulfate IVP 06/16/18 15:19 ONCALL PRN Heparin reversal in procedure Rocuronium [place] Confirm 06/15/18 20:43 Zemuron Administered 06/15/18 20:44 Dose 50 mg .ROUTE .STK-MED ONE Succinylcholine Chloride Confirm 06/20/18 11:52 Quelicin Administered 06/20/18 11:53 Dose 200 mg IVP .STK-MED ONE Sugammadex Sodium Confirm 06/15/18 22:44 Bridion Administered 06/15/18 22:45 Dose 200 mg IVP .STK-MED ONE Sugammadex Sodium Confirm 06/23/18 17:27 Bridion Administered 06/23/18 17:28 Dose 200 mg IVP .STK-MED ONE Physical Exam - Physical Exam General Appearance: alert, no apparent distress Respiratory: lungs clear, normal breath sounds Cardiac/Chest: regular rate, rhythm Abdomen: normal bowel sounds, non-tender, soft, other (intact dessing in left abdomen/drain) Skin: normal color, warm/dry Neuro/Psych: alert, normal mood/affect, oriented x 3 ICD10 Worksheet Patient Problems: Problems Problem Status Onset Cholangitis Acute
--- NOTE | 2018-06-25 11:40 | ASDISCHSUM ---
Discharge Information Plan Status:Home with No Needs Medically Cleared to Leave:06/24/2018 Discharge Date:06/24/2018 CM D/C Disposition:Home, Routine, Self-Care ADT D/C Disposition: Projected Discharge Date:06/24/2018 Transportation at D/C:Family Discharge Delay Reason: Follow-Up Date:06/24/2018 Discharge Slot:1 - 8:01 am - 12:00 noon Final Diagnosis:Cholangitis and CBD stone, PTC/biliary drain Placement Information Patient Contact Information Contact Name:ADRIANFIDEL Relationship:Daughter Address: Work Phone: City: [facility] Phone: [facility]/Zip Code: Email: Financial Information Financial Class:Medicare Primary Plan Desc:MEDICARE INPATIENT Primary Plan Number:[id number] Secondary Plan Desc:[facility] [employer] Secondary Plan Number:[id number] Assessment Information LACE LACE Length of stay for Answers: 7-13 days current admission Acuity / Level of Answers: Yes Care: Did the patient have an inpatient admission? Comorbidities - select Answers: Mild liver or renal all that apply disease # of Emergency department Answers: 1-2 visits in the last 6 months Score: 11 Date Signed: 06/25/2018 11:34 AM Electronically Signed By:Tanvi Cerda RN [facility] Progress Note CM Note CM Note Notes: Chart reviewed for discharge planning purposes. The patient was admitted via ED with jaundice and abdominal pain. ERCP attempted but not successful. Here visiting daughter from [place]. [place] to follow for needs. Plan: TBD Date Signed: 06/16/2018 08:53 AM Electronically Signed By:Perlita Macedo RN [facility] CM Progress Note CM Note CM Note Notes: Pt s/p ERCP. Another procedure planned for Wednesday. Pt hopefully to transition to po ABX soon. Anticipate d/c with no CM needs however will continue to follow for any change in needs. D/C plan: Anticipate home independent Date Signed: 06/17/2018 01:32 PM Electronically Signed By:DERRICK Goss [facility] CM Progress Note CM Note CM Note Notes: Plan of care reviewed in rounds. 78 year old female admitted with cholangitis and had failed ERCP. Patient to undergo another ERCP today. She is here visiting from [place]. She will likely have no needs at discharge. CM available should needs arise. Plan: DC to home no needs when medically cleared for discharge. Date Signed: 06/20/2018 01:56 PM Electronically Signed By:Perlita Macedo RN [facility] CM Progress Note CM Note CM Note Notes: Patient plan of care reviewed in rounds. She is to undergo repeat ERCP tomorrow. No current needs identified CM available should needs arise. Up in halls ambulating independently. Plan: Likely to dc home independently with good family support when medically cleared for discharge. Date Signed: 06/22/2018 12:50 PM Electronically Signed By:Perlita Macedo RN [facility] CM Progress Note CM Note CM Note Notes: Pt had GI procedure yesterday which was successful in dislodging the stone; however, pt still has drain in place, which will be clamped. SARATH RN to provide education on drain care until it can be removed at her appointment on . Likely to discharge to daughter's house here in [place] tomorrow. Pt lives in [place]. D/C Plan: Independent. Date Signed: 06/24/2018 11:41 AM Electronically Signed By:Zenobia Mayo Case Management Discharge Plan Note Case Management Discharge Discharge Order Complete? Answers: Yes Patient to Obtain Answers: via Family Medications Transportation Arranged Answers: Family/Friends Transport will Pick (Date 06/25/2018 12:00 AM & Time) EMTALA Complete Answers: No Notes: N/A Case Management Transport Answers: No Notes: N/A Form Complete Faxed Final Orders Answers: No Notes: N/A Agency/Facility Transfer Answers: No Notes: N/A Report Printed & Faxed to Receiving Agency Family Notified Answers: Yes Notes: Family at bedside Discharge Comments Notes: Reviewed chart, spoke with TASIA Severino regarding discharge plan of care, pt's progress. Pt to discharge home independently with family support and no identified needs. IM previously signed. Pt to follow up as directed. CM available for any further issues or concerns. Discharge Plan: Home independently with family support Date Signed: 06/25/2018 11:40 AM Electronically Signed By:Tanvi Cerda RN Intervention Information Intervention Type:*IM-Signed Date of Service:06/24/2018 02:19 PM Patient Type:Inpatient Staff Member:Emmy Redmond Hours: Discipline: Severity: Comment:
--- NOTE | 2018-06-25 12:55 | PDDCSUM ---
Discharge Summary Discharge Summary: Date of Admission: 06/15/2018 Date of Discharge: 06/25/2018 Consults: GI, IR Procedure: ERCPx3, IR percutaneous transhepatic drainage Followup: IR (Patient wishes to return to [place] for further care) Hospital Course Problem List: * Retained CBD stone, s/p failed ERCP x 2 -s/p IR percutaneous transhepatic drainage -combined IR/GI procedure on 06/23 with removal of CBG stone -LFTs continue to improve - Patient to followup with IR in [place] for removal of percutaneous drain in 1 month * Acute cholangitis with sepsis (fever/leukocytosis/tachycardia) -S/p 9 days of IV Ertapenum * HTN -continue lisinopril Time spent on discharge was >35 minutes with >50% of time spent on patient education and counseling.
== END 2018-06-25 11:41 | disposition home or self-care (01) | DRG 872 ==
LOC: F1N 18:43
PROVIDERS: ADMIT Internal Medicine; ATTEND Internal Medicine
PROC: 0F798DZ Dilation of Common Bile Duct with Intraluminal Device, Via Natural or Artificial Opening Endoscopic (ICD-10-PCS; 2018-06-15)
PROC: 0DB68ZX Excision of Stomach, Via Natural or Artificial Opening Endoscopic, Diagnostic (ICD-10-PCS; 2018-06-20)
PROC: 0DB48ZX Excision of Esophagogastric Junction, Via Natural or Artificial Opening Endoscopic, Diagnostic (ICD-10-PCS; 2018-06-20)
PROC: 0F9930Z Drainage of Common Bile Duct with Drainage Device, Percutaneous Approach (ICD-10-PCS; 2018-06-23)
PROC: 0FC98ZZ Extirpation of Matter from Common Bile Duct, Via Natural or Artificial Opening Endoscopic (ICD-10-PCS; principal; 2018-06-23 16:00)
DX: A41.9 Sepsis, unspecified organism (principal); K80.33 Calculus of bile duct with acute cholangitis with obstruction; I10 Essential (primary) hypertension; E03.9 Hypothyroidism, unspecified; M85.80 Other specified disorders of bone density and structure, unspecified site
CPT/HCPCS: A9585; C1729; C1769; C2625; J0330; J0690; J1100; J1335; J1610; J1644; J1650; J2060; J2250; J2405; J2704; J3010; Q9961; Q9967